=== PATIENT | female | born 1965 | race Caucasian/White ===

== ENCOUNTER → 2016-11-03 | Outpatient (CLI) | payer BC ==
[2016-11-03 11:59] LABS: ALT 52 U/L (9-52); AST 44 U/L (14-36); Alkaline Phosphatase 55 U/L (38-126); Anion Gap 11 mmol/L; Blood Urea Nitrogen 15 mg/dL (7-17); C Reactive Protein 9.4 mg/L (<10.0); Calcium 9.7 mg/dL (8.4-10.2); Carbon Dioxide 26 mmol/L (22-30); Chloride 103 mmol/L (98-107); Cholesterol 214 mg/dL (<200); Glucose 93 mg/dL (74-99); HDL Cholesterol 68 mg/dL (40-60); Non-African American GFR(MDRD) >60 (>60 ml/min/1.73 sqM); Potassium 4.7 mmol/L (3.5-5.1); Sodium 140 mmol/L (137-145); Total Bilirubin 0.6 mg/dL (0.2-1.3); Total Protein 6.8 g/dL (6.3-8.2); Triglycerides 131 mg/dL (<150)
== END | disposition home or self-care (01) ==
LOC: LABWHC1 10:12
PROVIDERS: ATTEND Nurse Practitioner Family
DX: M79.89 Other specified soft tissue disorders (principal); Z13.220 Encounter for screening for lipoid disorders; Z13.228 Encounter for screening for other metabolic disorders; Z13.1 Encounter for screening for diabetes mellitus
CPT/HCPCS: 36415; 80053; 80061; 83036; 83090; 86140

== ENCOUNTER → 2017-04-27 | Outpatient (CLI) | payer MEDICAID ==
--- NOTE | 2017-04-28 14:15 | MM ---
Reason for exam: screening (asymptomatic). Last mammogram was performed 2 years and 6 months ago. History: Patient is nulliparous. Benign MG stereo VAD BX LT of the left breast, March 29, 2014. Benign US breast needle core LT of the left breast, March 29, 2014. Taking hormonal contraceptives for 35 years beginning at age 11. Physical Findings: A clinical breast exam by your physician is recommended on an annual basis and results should be correlated with mammographic findings. MG 3D Screening Mammo W/Cad Bilateral CC and MLO view(s) were taken. Prior study comparison: October 23, 2014, left breast MG diagnostic mammo LT w CAD. January 30, 2014, bilateral MG work up mamm w CAD BILAT. The breast tissue is heterogeneously dense. This may lower the sensitivity of mammography. There are multiple bilateral stable masses. No suspicious abnormality. Post biopsy change on left breast. No significant changes when compared with prior studies. ASSESSMENT: Benign, BI-RAD 2 RECOMMENDATION: Routine screening mammogram of both breasts in 1 year.
== END | disposition home or self-care (01) ==
LOC: RADMAMWWP 13:05
PROVIDERS: ATTEND Obstetrics & Gynecology
DX: Z12.31 Encounter for screening mammogram for malignant neoplasm of breast (principal)
CPT/HCPCS: 77063; G0202

== ENCOUNTER → 2017-06-29 | Outpatient (CLI) | payer MEDICAID ==
[2017-06-30 00:51] LABS: Estradiol 99.6 pg/mL
== END | disposition home or self-care (01) ==
LOC: MMGSC 10:37
PROVIDERS: ATTEND Obstetrics & Gynecology
DX: N95.1 Menopausal and female climacteric states (principal); Z79.890 Hormone replacement therapy
CPT/HCPCS: 36415; 82670; 83001; 84403

== ENCOUNTER 2018-01-16 00:04 | Emergency (ER) | payer MEDICAID ==
[2018-01-16 00:07] VITALS: TEMP 97.5
[2018-01-16] MEDS ORDERED: METOCLOPRAMIDE 5 MG/ML 2 ML VIAL IVP STA ×2 (00:18→01:10)
[2018-01-16] MEDS ORDERED: SODIUM CHLORIDE 0.9% 1,000 ML IV STA (00:18)
[2018-01-16] MEDS ORDERED: KETOROLAC 30 MG/ML 1 ML VIAL IVP STA ×2 (00:18→01:10)
[2018-01-16] MEDS ORDERED: diphenhydrAMINE 50 MG/ML 1 ML VIAL IVP STA (00:18)
--- NOTE | 2018-01-16 00:29 | ED ---
Headache HPI - General Chief Complaint: Headache Stated Complaint: Migraine Time Seen by Provider: 01/16/18 00:14 Mode of arrival: ambulatory Limitations: no limitations - History of Present Illness Initial Comments: This is a 52-year-old female who presents to the emergency department with chief complaint of migraine. Patient does state that she has a history of migraines. She states that tonight, approximately one hour ago she developed a migraine. She describes it as sharp and throbbing, starting at the base of the skull and radiating to her forehead. She states that this is what her normal migraines feel like. She does state that she took 3 sumatriptan and has been vomiting and believes she vomited some of the medication up. She denies any fevers or chills, abdominal pain, diarrhea or constipation, chest pain or shortness of breath. She denies any recent falls, injuries or trauma. - Related Data Home Medications Medication Instructions Recorded Confirmed Aspirin 1 tab PO DAILY 08/09/15 08/09/15 Escitalopram [Lexapro] 1 tab PO DAILY 08/09/15 08/09/15 Levothyroxine Sodium [Synthroid] 1 tab PO DAILY 08/09/15 08/09/15 Omeprazole [PriLOSEC] 1 tab PO DAILY 08/09/15 08/09/15 Allergies Allergy/AdvReac Type Severity Reaction Status Date / Time ephedrine AdvReac Rapid Verified 01/16/18 00:07 Heart Rate lansoprazole [From Prevacid] AdvReac Nausea & Verified 01/16/18 00:07 Vomiting & Diarrhea Review of Systems ROS Statement: Those systems with pertinent positive or pertinent negative responses have been documented in the HPI. ROS Other: All systems not noted in ROS Statement are negative. Past Medical History Past Medical History: Asthma, Fibromyalgia, GERD/Reflux, Thyroid Disorder Additional Past Medical History / Comment(s): kidney stones, narcolepsy History of Any Multi-Drug Resistant Organisms: None Reported Past Surgical History: Cholecystectomy Past Psychological History: Depression Smoking Status: Never smoker Past Alcohol Use History: None Reported Past Drug Use History: None Reported General Exam - General Exam Comments Initial Comments: General: Awake and alert, well-developed; in no apparent distress. Diaphoretic. Appears to be in pain. HEENT: Head atraumatic, normocephalic. Pupils are equal, round and reactive to light. Extraocular movements intact. Oropharynx moist without erythema or exudate. Neck: Supple. Normal ROM. Cardiovascular: Regular rate and rhythm. No murmurs, rubs or gallops. Chest symmetrical. Respiratory: Lungs clear to auscultation bilaterally. No wheezes, rales or rhonchi. Normal respiratory effort with no use of accessory muscles. Musculoskeletal: Normal ROM, no tenderness bilateral upper and lower extremities. Ambulating normally. Skin: [place], warm and dry without rashes or lesions. Neurological: Alert and oriented x3. CN II-XII grossly intact. Speech is fluent and answers are appropriate. No focal neuro deficits. Psychiatric: Normal mood and affect. No overt signs of depression or anxiety noted. Limitations: no limitations Course Vital Signs 01/16/18 00:05 Temperature 97.5 F L Pulse Rate 61 Respiratory 18 Rate Blood Pressure 167/82 O2 Sat by Pulse 98 Oximetry Medical Decision Making - Medical Decision Making This is a 52-year-old female with history of migraines who presents to the emergency department chief complaint of migraine. Patient states her current migraine is the same as her previous migraines. She states that she was unable to get her symptoms under control at home. Patient given fluids and headache cocktail in the emergency department. Patient states that her symptoms have improved. She is ready to be discharged home. Vital signs are stable and she is in no acute distress. She will be discharged home at this time. All questions answered. Disposition Clinical Impression: Headache Disposition: HOME SELF-CARE Condition: Good Instructions: Acute Headache (ED) Additional Instructions: Please follow up with primary care provider within 1-2 days. Return to emergency department if symptoms should worsen or any concerns arise. Is patient prescribed a controlled substance at d/c from ED?: No Referrals: Tavares Gallegos III, MD [Primary Care Provider] - 1-2 days Time of Disposition: 02:09
[2018-01-16] MEDS ORDERED: ORPHENADRINE 30 MG/ML 2 ML VIAL IVP STA (01:30)
[2018-01-16] MEDS ORDERED: methylPREDNISolone SOD SUCCI 125 MG/2 ML VIAL IV STA (01:30)
[2018-01-16 02:19] VITALS: BP 131/78; PULSE 85; RESP 16
== END 2018-01-16 02:20 | disposition home or self-care (01) ==
LOC: EC 00:04
DX: R51 Headache (principal); R11.10 Vomiting, unspecified; F32.9 Major depressive disorder, single episode, unspecified; E07.9 Disorder of thyroid, unspecified; K21.9 Gastro-esophageal reflux disease without esophagitis; Z86.69 Personal history of other diseases of the nervous system and sense organs; Z90.49 Acquired absence of other specified parts of digestive tract; Z79.82 Long term (current) use of aspirin; Z79.899 Other long term (current) drug therapy; Z88.8 Allergy status to other drugs, medicaments and biological substances
CPT/HCPCS: 99283; 96374; 96375 ×4; 96376; 96361; J1200; J2360; J2765; J2930; J1885

== ENCOUNTER → 2018-02-04 | Outpatient (CLI) | payer MEDICAID ==
[2018-02-04 10:38] LABS: Basophils % (A) 1 %; Eosinophils # (A) 0.3 k/uL (0-0.7); Eosinophils % (A) 5 %; HCT 42.5 % (34.0-46.0); HGB 14.7 gm/dL (11.4-16.0); Lymphocytes # (A) 1.5 k/uL (1.0-4.8); Lymphocytes % (A) 31 %; MCH 32.7 pg (25.0-35.0); MCHC 34.6 g/dL (31.0-37.0); MCV 94.4 fL (80.0-100.0); Mean Platelet Volume 6.5; Monocytes # (A) 0.2 k/uL (0-1.0); Monocytes % (A) 5 %; Neutrophils # (A) 2.8 k/uL (1.3-7.7); Neutrophils % (A) 56 %; Platelet Count 276 k/uL (150-450); RDW 12.7 % (11.5-15.5)
[2018-02-04 10:54] LABS: Anion Gap 10 mmol/L; Blood Urea Nitrogen 23 mg/dL (7-17); C Reactive Protein 5.6 mg/L (<10.0); Calcium 9.9 mg/dL (8.4-10.2); Carbon Dioxide 26 mmol/L (22-30); Chloride 104 mmol/L (98-107); Cholesterol 211 mg/dL (<200); Glucose 95 mg/dL (74-99); HDL Cholesterol 60 mg/dL (40-60); LDL Cholesterol,Calculated 125 mg/dL (0-99); Potassium 4.7 mmol/L (3.5-5.1); Sodium 140 mmol/L (137-145); Triglycerides 132 mg/dL (<150)
[2018-02-04 11:08] LABS: T4, Free (Free Thyroxine) 0.87 ng/dL (0.78-2.19)
[2018-02-04 17:13] LABS: Iron Saturation 49.17 (12.00-45.00); Vitamin D 25 Hydroxy 48.2 ng/mL (30.0-100.0)
[2018-02-04 17:33] LABS: Folate, Serum 18.8 ng/mL
[2018-02-04 19:21] LABS: Hemoglobin A1C 5.1 % (4.0-6.0)
== END | disposition home or self-care (01) ==
LOC: LABWHC1 10:05
PROVIDERS: ATTEND Nurse Practitioner Family
DX: E03.9 Hypothyroidism, unspecified (principal); G47.419 Narcolepsy without cataplexy; R53.83 Other fatigue; L65.9 Nonscarring hair loss, unspecified; E66.9 Obesity, unspecified; R41.82 Altered mental status, unspecified; R51 Headache; N95.1 Menopausal and female climacteric states; Z13.228 Encounter for screening for other metabolic disorders; Z13.220 Encounter for screening for lipoid disorders
CPT/HCPCS: 36415; 80048; 80061; 82306; 82607; 82670; 82728; 82746; 83001; 83036; 83090; 83540; 83550; 84144; 84403; 84439; 84443; 84480; 85025; 86140

== ENCOUNTER → 2018-03-03 | Outpatient (CLI) | payer MEDICAID ==
--- NOTE | 2018-03-03 23:24 | MR ---
EXAMINATION TYPE: MR brain/cspine wo/w DATE OF EXAM: 03/03/2018 COMPARISON: Brain 10/25/2009. HISTORY: Migraines, changes in vision, neck spasms TECHNIQUE: Multiplanar, multisequence images of the brain and brainstem is performed without and with IV contras t, utilizing 8 mL intravenous Gadavist . FINDINGS: There is minimal cerebral cortical atrophy. There is no mass effect nor midline shift. There is no si gn of intracranial hemorrhage. Corpus callosum appears normal. The brainstem appears normal. Sella tu rcica is normal. Contrast images show no pathologic enhancement of the brain. The cervical vertebra have normal alignment. There is slight narrowing of disc spaces at C6-7 and C7- T1. There is developmentally adequate cervical spinal canal. There are small posterior disc herniatio ns at C5-6 C6-7 C7-T1. Cervical spinal cord has normal signal pattern. There is no edema. There is no spinal stenosis. There is no compression fracture. There is no pathologic enhancement in the cervica l spine. IMPRESSION: Mild cerebral atrophy. No acute intracranial abnormality. Mild spondylotic changes in the cervical spine and multilevel small posterior cervical disc herniatio n. No spinal stenosis.
== END | disposition home or self-care (01) ==
LOC: RADMRIMAIN 18:55
PROVIDERS: ATTEND Family Medicine
DX: G31.9 Degenerative disease of nervous system, unspecified (principal); M50.222 Other cervical disc displacement at C5-C6 level; M47.812 Spondylosis without myelopathy or radiculopathy, cervical region; G43.709 Chronic migraine without aura, not intractable, without status migrainosus; G95.20 Unspecified cord compression; G95.0 Syringomyelia and syringobulbia
CPT/HCPCS: 70553; 72156; A9581

== ENCOUNTER 2018-04-06 11:23 | Emergency (ER) | payer MEDICAID ==
[2018-04-06 11:35] VITALS: TEMP 98.8
[2018-04-06] MEDS ORDERED: IPRATROPIUM-ALBUTEROL 3 ML NEB INHALATION STA (11:54)
[2018-04-06] MEDS ORDERED: ACETAMINOPHEN TAB 500 MG TAB PO STA (11:55)
[2018-04-06] MEDS ORDERED: IBUPROFEN 600 MG TAB PO STA (11:55)
--- NOTE | 2018-04-06 11:56 | ED ---
URI HPI - General Chief Complaint: Upper Respiratory Infection Stated Complaint: COLD SYMPTOMS Time Seen by Provider: 04/06/18 11:40 Source: patient, RN notes reviewed, old records reviewed Mode of arrival: ambulatory Limitations: no limitations - History of Present Illness Initial Comments: This Patient is a 32-year-old female presents emergency department if she plan cough congestion sore throat for the past 2 days. Patient reports that she has seen in urgent care last . She was started on Decadron and Augmentin. Patient's been on this antibiotic for a week. Should she was feeling somewhat better up until yesterday. She was at a [facility] yesterday as well as been exposed to multiple allergens she may have breathed in. Patient's concerned because yesterday and today she's had a severe cough and is feeling worse. She complains of severe body aches. - Related Data Home Medications Medication Instructions Recorded Confirmed Aspirin 1 tab PO DAILY 08/09/15 04/06/18 Escitalopram [Lexapro] 1 tab PO DAILY 08/09/15 04/06/18 Levothyroxine Sodium [Synthroid] 1 tab PO DAILY 08/09/15 04/06/18 Omeprazole [PriLOSEC] 1 tab PO DAILY 08/09/15 04/06/18 Albuterol Inhaler [Ventolin Hfa 1 - 2 puff INHALATION RT-Q6H PRN 04/06/18 Inhaler] Fluticasone/Salmeterol [Advair 1 inhalation PO BID 04/06/18 04/06/18 250-50 Diskus] Previous Rx's Medication Instructions Recorded Azithromycin [Zithromax] 500 mg PO DAILY #5 tab 04/06/18 guaiFENesin-DM 600/30MG [Mucinex 1 each PO Q12HR #20 tab.er.12h 04/06/18 Dm] predniSONE 50 mg PO DAILY #5 tablet 04/06/18 Allergies Allergy/AdvReac Type Severity Reaction Status Date / Time ephedrine AdvReac Rapid Verified 04/06/18 11:31 Heart Rate lansoprazole [From Prevacid] AdvReac Nausea & Verified 04/06/18 11:31 Vomiting & Diarrhea Review of Systems ROS Statement: Those systems with pertinent positive or pertinent negative responses have been documented in the HPI. ROS Other: All systems not noted in ROS Statement are negative. Past Medical History Past Medical History: Asthma, Fibromyalgia, GERD/Reflux, Thyroid Disorder Additional Past Medical History / Comment(s): kidney stones, narcolepsy History of Any Multi-Drug Resistant Organisms: None Reported Past Surgical History: Cholecystectomy Past Psychological History: Depression Smoking Status: Never smoker Past Alcohol Use History: None Reported Past Drug Use History: None Reported General Exam - General Exam Comments Initial Comments: This is a 52-year-old female. Alert and oriented. No significant distress. Limitations: no limitations Head exam: Present: atraumatic, normocephalic, normal inspection Eye exam: Present: normal appearance, PERRL, EOMI. Absent: scleral icterus, conjunctival injection, periorbital swelling ENT exam: Present: normal exam, mucous membranes moist Neck exam: Present: normal inspection. Absent: tenderness, meningismus, lymphadenopathy Respiratory exam: Present: normal lung sounds bilaterally. Absent: respiratory distress, wheezes, rales, rhonchi, stridor Cardiovascular Exam: Present: regular rate, normal rhythm, normal heart sounds. Absent: systolic murmur, diastolic murmur, rubs, gallop, clicks GI/Abdominal exam: Present: soft, normal bowel sounds. Absent: distended, tenderness, guarding, rebound, rigid Extremities exam: Present: normal inspection, full ROM, normal capillary refill. Absent: tenderness, pedal edema, joint swelling, calf tenderness Back exam: Present: normal inspection Neurological exam: Present: alert, oriented X3, CN II-XII intact Psychiatric exam: Present: normal affect, normal mood Skin exam: Present: warm, dry, intact, normal color. Absent: rash Course Vital Signs 04/06/18 04/06/18 04/06/18 11:32 12:15 12:36 Temperature 98.8 F 98.8 F Pulse Rate 113 H 108 H Respiratory 20 Rate Blood Pressure 127/80 O2 Sat by Pulse 97 Oximetry 04/06/18 12:45 Temperature Pulse Rate 112 H Respiratory Rate Blood Pressure O2 Sat by Pulse Oximetry Medical Decision Making - Medical Decision Making Patient is a 52-year-old female treated recently for sinus infection bronchitis was feeling better up until yesterday. She now developed a significant cough. She started on Augmentin at this time as well as finishing a steroid taper pack. At this time lungs are clear to auscultation she does have a mild cough. Patient was given a DuoNeb treatment. She Motrin Tylenol. She completed the body aches PG concern for influenza. This time rapid influenza is negative. This is multiple viral etiologies are could possibly be ALLERGY exposure. She does report that she's been cleaning dust and mold. At this time Patient will be discharged with inhaler, continue her Augmentin. Chest x-ray was negative for any acute process. We'll follow up with primary care provider. All questions answered return parameters were discussed. - Lab Data Lab Results 04/06/18 Range/Units 12:20 Influenza Type A RNA Not Detected (Not Detectd) Influenza Type B (PCR) Not Detected (Not Detectd) - Radiology Data Radiology results: report reviewed Normal chest x-ray Disposition Clinical Impression: Bronchitis Disposition: HOME SELF-CARE Condition: Good Instructions: Upper Respiratory Infection (ED) Additional Instructions: Patient has follow-up with primary care physician in her throat specialist. Continue to use decongestant medication. Start the antibiotic. Finish the prescription dorsum steroid. Return to the emergency department if any alarming signs or symptoms occur. Prescriptions: Azithromycin [Zithromax] 500 mg PO DAILY #5 tab guaiFENesin-DM 600/30MG [Mucinex Dm] 1 each PO Q12HR #20 tab.er.12h predniSONE 50 mg PO DAILY #5 tablet Is patient prescribed a controlled substance at d/c from ED?: No Referrals: Tavares Gallegos III, MD [Primary Care Provider] - 1-2 days Christopher Frey DO [Doctor of Osteopathic Medicine] - 1-2 days Time of Disposition: 13:23
--- NOTE | 2018-04-06 12:53 | XR ---
EXAMINATION TYPE: XR chest 2V DATE OF EXAM: 04/06/2018 COMPARISON: NONE HISTORY: Shortness of breath TECHNIQUE: Frontal and lateral views of the chest are obtained. FINDINGS: Scattered senescent parenchymal changes noted. Hyperinflation compatible with COPD. No evidence for infiltrate. No evidence for atelectasis. Heart size is stable. Mediastinal structures are stable and grossly unremarkable. No evidence for hilar prominence. Degenerative changes dorsal spine. IMPRESSION: 1. No evidence for acute pulmonary disease.
[2018-04-06 13:38] VITALS: BP 120/80; PULSE 72; RESP 18
== END 2018-04-06 13:38 | disposition home or self-care (01) ==
LOC: EC 11:23
DX: J45.909 Unspecified asthma, uncomplicated (principal); K21.9 Gastro-esophageal reflux disease without esophagitis; E07.9 Disorder of thyroid, unspecified; F32.9 Major depressive disorder, single episode, unspecified; Z79.82 Long term (current) use of aspirin; Z79.51 Long term (current) use of inhaled steroids; Z79.899 Other long term (current) drug therapy; Z88.8 Allergy status to other drugs, medicaments and biological substances; Z53.29 Procedure and treatment not carried out because of patient's decision for other reasons
CPT/HCPCS: 71046; 87502; 94640; 99284

== ENCOUNTER → 2018-04-19 | Outpatient (CLI) | payer MEDICAID ==
--- NOTE | 2018-04-19 14:58 | US ---
EXAMINATION TYPE: US transvaginal DATE OF EXAM: 04/19/2018 COMPARISON: NONE CLINICAL HISTORY: 52-year-old female N93.9 UTERINE HEMORRHAGE. TECHNIQUE: Patient not adequately prepped for transabdominal exam - patient preferred TV approach ra ther than wait and fill bladder Date of LMP: 2 weeks ago FINDINGS: EXAM MEASUREMENTS: Uterus: 6.7 x 3.3 x 3.9 cm Endometrial Stripe: 0.3 cm Right Ovary: unable to visualize Left Ovary: unable to visualize 1. Uterus: Anteverted. Heterogeneous in appearance. Small nabothian cysts noted 2. Endometrium: appears wnl 3. Right Ovary: Obscured by overlying bowel gas 4. Left Ovary: Obscured by overlying bowel gas 5. Bilateral Adnexa: appears wnl 6. Posterior cul-de-sac: wnl IMPRESSION: Thin endometrial stripe at 3 mm. Heterogeneous myometrium could reflect diffuse small fibroid change or adenomyosis. Neither ovary could be visualized. No pelvic free fluid.
== END | disposition home or self-care (01) ==
LOC: RADUSWWP 12:37
PROVIDERS: ATTEND Obstetrics & Gynecology
DX: N93.9 Abnormal uterine and vaginal bleeding, unspecified (principal); R93.8 Abnormal findings on diagnostic imaging of other specified body structures
CPT/HCPCS: 76830

== ENCOUNTER → 2018-05-19 | Outpatient (CLI) | payer MEDICAID ==
--- NOTE | 2018-05-23 09:39 | MM ---
Reason for exam: screening (asymptomatic). Last mammogram was performed 1 year and 1 month ago. History: Patient is nulliparous. Benign MG stereo VAD BX LT of the left breast, March 29, 2014. Benign US breast needle core LT of the left breast, March 29, 2014. Took hormonal contraceptives for 35 years beginning at age 11. Physical Findings: A clinical breast exam by your physician is recommended on an annual basis and results should be correlated with mammographic findings. MG 3D Screening Mammo W/Cad Bilateral CC and MLO view(s) were taken. Prior study comparison: April 27, 2017, bilateral MG 3d screening mammo w/cad. October 23, 2014, left breast MG diagnostic mammo LT w CAD. The breast tissue is heterogeneously dense. This may lower the sensitivity of mammography. Previous mammotome biopsy in the left breast x 2. There is chronic nodularity in the left breast posteriorly and medially only minimally larger from 2017. No significant changes when compared with prior studies. ASSESSMENT: Negative, BI-RAD 1 RECOMMENDATION: Routine screening mammogram of both breasts in 1 year.
== END | disposition home or self-care (01) ==
LOC: RADMAMWWP 09:57
PROVIDERS: ATTEND Obstetrics & Gynecology
DX: Z12.31 Encounter for screening mammogram for malignant neoplasm of breast (principal)
CPT/HCPCS: 77063; 77067

== ENCOUNTER 2018-07-03 00:04 | Emergency (ER) | payer MEDICAID ==
[2018-07-03 00:16] VITALS: RESP 18; TEMP 97.4
[2018-07-03] MEDS ORDERED: FAMOTIDINE 20 MG/2 ML VIAL IV STA ×2 (00:26→00:44)
[2018-07-03] MEDS ORDERED: methylPREDNISolone SOD SUCCI 125 MG/2 ML VIAL IV STA (00:26)
[2018-07-03] MEDS ORDERED: SODIUM CHLORIDE 0.9% 500 ML 500 ML IV STA (00:26)
[2018-07-03] MEDS ORDERED: diphenhydrAMINE 50 MG/ML 1 ML VIAL IVP STA (00:26)
[2018-07-03] MEDS ORDERED: EPINEPHrine 1 MG/ML 1 ML AMP IM STA (00:26)
--- NOTE | 2018-07-03 01:02 | ED ---
General Adult HPI - General Chief complaint: Allergic Reaction Stated complaint: Allergic Reaction Source: patient, family, RN notes reviewed Mode of arrival: ambulatory Limitations: no limitations - History of Present Illness Initial comments: Chief complaint history of present illness this is a 52-year-old female brought emergency room by her . The patient reports 7 ALLERGIC reaction after eating some natural bagel chips. Denies having had reactions to food in the past. He does have a history though of asthma. At home the patient took a drink approximately 25 mg of Benadryl, took a dose of Singulair, Zyrtec. Upon arrival to emergency room the patient had an IV started. She was giving epinephrine 0.2 IM, Benadryl 25 IV push, Pepcid 20 mg IV push, Solu-Medrol Medrol 125 IV push. Patient was placed on oxygen. Patient has itchy rash but no stridor. Mild swelling to eyelids and hands. No swelling to her tongue. No change in her voice - Related Data Home Medications Medication Instructions Recorded Confirmed Aspirin 1 tab PO DAILY 08/09/15 04/06/18 Escitalopram [Lexapro] 1 tab PO DAILY 08/09/15 04/06/18 Levothyroxine Sodium [Synthroid] 1 tab PO DAILY 08/09/15 04/06/18 Omeprazole [PriLOSEC] 1 tab PO DAILY 08/09/15 04/06/18 Albuterol Inhaler [Ventolin Hfa 1 - 2 puff INHALATION RT-Q6H PRN 04/06/18 Inhaler] Fluticasone/Salmeterol [Advair 1 inhalation PO BID 04/06/18 04/06/18 250-50 Diskus] Previous Rx's Medication Instructions Recorded Azithromycin [Zithromax] 500 mg PO DAILY #5 tab 04/06/18 guaiFENesin-DM 600/30MG [Mucinex 1 each PO Q12HR #20 tab.er.12h 04/06/18 Dm] predniSONE 50 mg PO DAILY #5 tablet 04/06/18 EPINEPHrine [Epipen 2-Jeremy] 0.3 mg .ROUTE ONCE PRN #1 07/03/18 auto.injct predniSONE 20 mg PO DAILY #3 tab 07/03/18 Allergies Allergy/AdvReac Type Severity Reaction Status Date / Time ephedrine AdvReac Rapid Verified 07/03/18 00:16 Heart Rate lansoprazole [From Prevacid] AdvReac Nausea & Verified 07/03/18 00:16 Vomiting & Diarrhea Review of Systems ROS Statement: Those systems with pertinent positive or pertinent negative responses have been documented in the HPI. Review of systems. Patient , ALLERGIC reaction to a food that she had tried at home this occurred just shortly after eating some thin dry crust be bagel chips. Patient took Singulair. History of asthma. Past medical problems asthma, fibromyalgia, GERD, thyroid disorder, kidney stones. Surgery, cholecystectomy. Nonsmoker and nonalcohol user. Family history noncontributory. Patient has ALLERGIES to ephedrine and lansoprazole the ephedrine is makes her feel jittery. Patient states Pepcid makes her a headache. Unfortunately Zantac is not available in our formulary. Patient agrees to take Pepcid to help control her ALLERGIC reaction. After approximately 30 minutes the patient's rash subsided. She did feel jittery because of the epinephrine. No difficulty breathing. No wheezing. Patient be observed for at least 90 more minutes. At which time patient be reevaluated and if able be discharged home on medications. Patient final disposition endorsed to Dr. Cannon Patient was advised to continue with Benadryl 25-50 mg every 6-8 hours for the next 2 days. Also [id number] Zantac one tablet daily for 2 days. The patient was given a prescription for an epi-pen to be used as directed and as needed. The patient will also be given prescription for prednisone 20 mg are taken one daily for 2 days. ROS Other: All systems not noted in ROS Statement are negative. Past Medical History Past Medical History: Asthma, Fibromyalgia, GERD/Reflux, Thyroid Disorder Additional Past Medical History / Comment(s): kidney stones, narcolepsy History of Any Multi-Drug Resistant Organisms: None Reported Past Surgical History: Cholecystectomy Past Psychological History: Depression Smoking Status: Never smoker Past Alcohol Use History: None Reported Past Drug Use History: None Reported General Exam - General Exam Comments Initial Comments: General: The patient is awake and alert, patient is having ALLERGIC reaction to some bagel thins which she just ate. She took Benadryl at home. See nurses vital signs. No significant respiratory distress this time. Eye: Pupils are equal, round and reactive to light, extra-ocular movements are intact ; there is normal conjunctiva bilaterally. No signs of icterus. Mild eyelid swelling. Ears, nose, mouth and throat: There are moist mucous membranes and no oral lesions. Tongue is not swollen. Neck: The neck is supple, no stridor Cardiovascular: No murmur appreciated Respiratory: Lungs are clear to auscultation, respirations are non-labored, breath sounds are equal. No wheezes, stridor, rales, or rhonchi. Gastrointestinal: S a complaint of nausea vomiting. No neuro deficits. Skin: Reddened skin no hives. Psychiatric: Cooperative, Limitations: no limitations Course Vital Signs 07/03/18 07/03/18 07/03/18 00:10 00:20 00:47 Temperature 97.4 F L Pulse Rate 78 89 94 Respiratory 18 18 18 Rate Blood Pressure 67/35 105/32 111/72 O2 Sat by Pulse 91 L 90 L 97 Oximetry 07/03/18 02:49 Temperature Pulse Rate 105 H Respiratory 18 Rate Blood Pressure 115/75 O2 Sat by Pulse 98 Oximetry Medical Decision Making - Medical Decision Making Medical decision making; is a patient 52 years old brought emergency room by her . The patient had an ALLERGIC reaction to food she just 8. The patient received standard antiallergic medications as listed Patient was observed for a prolonged period of time rash ended. No difficulty breathing. The patient's final disposition was to be determined by Dr. Ingram. And discharged home on EpiPen prescription be filled immediately, and a drill, Zantac, Benadryl as directed. Told return emergency room as needed if there are any problems. Disposition Clinical Impression: Allergic reaction Disposition: HOME SELF-CARE Condition: Fair Instructions: Anaphylaxis (ED) Prescriptions: EPINEPHrine [Epipen 2-Jeremy] 0.3 mg .ROUTE ONCE PRN #1 auto.injct PRN Reason: Allergic Reaction predniSONE 20 mg PO DAILY #3 tab Is patient prescribed a controlled substance at d/c from ED?: No Referrals: Tavares Gallegos III, MD [Primary Care Provider] - 1-2 days Time of Disposition: 15:43
[2018-07-03 02:49] VITALS: BP 115/75; PULSE 105
== END 2018-07-03 02:49 | disposition home or self-care (01) ==
LOC: EC 00:04
DX: T78.1XXA Other adverse food reactions, not elsewhere classified, initial encounter (principal); R21 Rash and other nonspecific skin eruption; J45.909 Unspecified asthma, uncomplicated; F32.9 Major depressive disorder, single episode, unspecified; K21.9 Gastro-esophageal reflux disease without esophagitis; Z79.82 Long term (current) use of aspirin; Z79.51 Long term (current) use of inhaled steroids; Z79.899 Other long term (current) drug therapy; Z88.8 Allergy status to other drugs, medicaments and biological substances
CPT/HCPCS: 99283; 96374; 96375 ×2; 96361; 96372; J0171; J1200; J2930

== ENCOUNTER → 2018-09-22 | Outpatient (CLI) | payer MEDICAID ==
[2018-09-22 11:13] LABS: Basophils % (A) 1 %; Eosinophils # (A) 0.6 k/uL (0-0.7); Eosinophils % (A) 7 %; HCT 42.8 % (34.0-46.0); HGB 14.3 gm/dL (11.4-16.0); Lymphocytes # (A) 1.6 k/uL (1.0-4.8); Lymphocytes % (A) 22 %; MCH 32.2 pg (25.0-35.0); MCHC 33.5 g/dL (31.0-37.0); MCV 96.1 fL (80.0-100.0); Mean Platelet Volume 6.1; Monocytes # (A) 0.4 k/uL (0-1.0); Monocytes % (A) 5 %; Neutrophils # (A) 4.9 k/uL (1.3-7.7); Neutrophils % (A) 64 %; Platelet Count 233 k/uL (150-450); RBC 4.45 m/uL (3.80-5.40); RDW 12.7 % (11.5-15.5); WBC 7.5 k/uL (3.8-10.6)
[2018-09-22 12:31] LABS: Erythrocyte Sedimentation Rate 6 mm/hr (0-20)
[2018-09-22 18:25] LABS: Albumin 4.4 g/dL (3.80-4.90); Albumin/Globulin Ratio 2.44 (1.60-3.17); Anion Gap 8.9 mmol/L (4.00-12.00); C Reactive Protein 0.7 mg/dL (0.0-0.8); Calcium 9.7 mg/dL (8.7-10.3); Carbon Dioxide 27.1 mmol/L (21.6-31.8); Globulin 1.8 g/dL (1.6-3.3); Potassium 4.6 mmol/L (3.5-5.5); Total Bilirubin 0.4 mg/dL (0.2-1.2); Total Protein 6.2 g/dL (6.2-8.2)
[2018-09-23 04:23] LABS: Hepatitis C IgG Antibody Non-Reactive (Non-Reactive)
[2018-09-23 10:49] LABS: Immunoglobulin A 79.2 mg/dL (60.0-350.0); Immunoglobulin M 71.8 mg/dL (40.0-280.0)
[2018-09-25 12:18] LABS: T4/T8 Ratio (CD4:CD8) 1.9 (1.0-3.7)
[2018-09-26 15:10] LABS: Lyme IgG/IgM 0.6 Index
[2018-09-27 06:17] LABS: Mycoplasma IgM Antibody 0.34 INDEX (<=0.90)
== END | disposition home or self-care (01) ==
LOC: LABWHC1 10:10
PROVIDERS: ATTEND Internal Medicine Infectious Disease
DX: R53.83 Other fatigue (principal); G72.49 Other inflammatory and immune myopathies, not elsewhere classified
CPT/HCPCS: 36415; 80053; 82784; 85025; 85652; 86140; 86360; 86618; 86738; 86803

== ENCOUNTER → 2018-11-17 | Outpatient (CLI) | payer MEDICAID ==
[2018-11-17 18:36] LABS: T4, Free (Free Thyroxine) 1.4 ng/dL (0.80-1.80)
[2018-11-17 18:53] LABS: Progesterone <0.2 ng/mL
== END | disposition home or self-care (01) ==
LOC: LABWHC1 11-10 10:11
PROVIDERS: ATTEND Obstetrics & Gynecology
DX: E03.9 Hypothyroidism, unspecified (principal); N95.1 Menopausal and female climacteric states
CPT/HCPCS: 36415; 82670; 83001; 84144; 84403; 84439; 84443

== ENCOUNTER → 2019-01-03 | Outpatient (CLI) | payer MEDICAID | END | disposition home or self-care (01) | LOC: LABWHC1 16:05 | PROVIDERS: ATTEND Obstetrics & Gynecology | DX: N95.1 Menopausal and female climacteric states (principal); R61 Generalized hyperhidrosis; E34.50 Androgen insensitivity syndrome, unspecified | CPT/HCPCS: 36415; 82670; 83001; 84144; 84403 ==

== ENCOUNTER → 2019-03-07 | Outpatient (CLI) | payer MEDICAID ==
--- NOTE | 2019-03-07 14:52 | XR ---
Right hip HISTORY: Trauma and pain 2 views of the right hip Bone mineralization, joint spaces and alignment are maintained. IMPRESSION: No fracture or dislocation.
--- NOTE | 2019-03-07 14:52 | XR ---
Right shoulder HISTORY: Trauma and pain 3 views of the right shoulder Bone mineralization, joint spaces and alignment are maintained. Right lung apex as visualized is norm al IMPRESSION: No fracture or dislocation. Shoulder MRI may be of benefit.
== END | disposition home or self-care (01) ==
LOC: RADXRMAIN 13:54
PROVIDERS: ATTEND Nurse Practitioner Family
DX: M25.551 Pain in right hip (principal); M25.511 Pain in right shoulder
CPT/HCPCS: 73501

== ENCOUNTER → 2019-12-26 | Outpatient (CLI) | payer MEDICAID ==
--- NOTE | 2019-12-26 13:07 | XR ---
EXAMINATION TYPE: XR chest 2V DATE OF EXAM: 12/26/2019 COMPARISON: Chest x-ray April 06, 2018 HISTORY: Cough for several weeks. TECHNIQUE: Frontal and lateral views of the chest are obtained. FINDINGS: There is some chronic parenchymal change without suspicious new focal air space opacity, p leural effusion, or pneumothorax seen. The cardiac silhouette size remains within normal limits. Cho lecystectomy clips noted on lateral view. Some [id number] multilevel spurring in the mid to low er thoracic spine is redemonstrated. IMPRESSION: Chronic changes without new suspicious acute pulmonary process. No significant change fr om prior.
[2019-12-26 13:19] LABS: Basophils # (A) 0.1 k/uL (0-0.2); Basophils % (A) 1 %; Eosinophils # (A) 0.4 k/uL (0-0.7); Eosinophils % (A) 7 %; HCT 45.5 % (34.0-46.0); HGB 14.9 gm/dL (11.4-16.0); Lymphocytes # (A) 1.3 k/uL (1.0-4.8); Lymphocytes % (A) 21 %; MCH 32.3 pg (25.0-35.0); MCHC 32.7 g/dL (31.0-37.0); MCV 98.8 fL (80.0-100.0); Mean Platelet Volume 6.8; Monocytes # (A) 0.3 k/uL (0-1.0); Monocytes % (A) 5 %; Neutrophils % (A) 65 %; Platelet Count 238 k/uL (150-450); RDW 12.2 % (11.5-15.5); WBC 6.3 k/uL (3.8-10.6)
[2019-12-26 15:36] LABS: Erythrocyte Sedimentation Rate 7 mm/hr (0-20)
[2019-12-27 00:03] LABS: ALT 35 U/L (8-44); AST 35 U/L (13-35); African American GFR (CKD) 112.3 (60.0-200.0); Alkaline Phosphatase 72 U/L (41-126); BUN/Creat Ratio 15.71 Ratio (12.00-20.00); C Reactive Protein <0.4 mg/dL (0.0-0.8); Calcium 9.7 mg/dL (8.7-10.3); Carbon Dioxide 25.2 mmol/L (21.6-31.8); Chloride 103 mmol/L (96-109); Glucose 94 mg/dL (70-110); Non-African American GFR(CKD) 96.9 (60.0-200.0); Potassium 4.2 mmol/L (3.5-5.5); Sodium 141 mmol/L (135-145); Total Bilirubin 0.8 mg/dL (0.3-1.2); Total Protein 6.4 g/dL (6.2-8.2)
== END | disposition home or self-care (01) ==
LOC: LABWHC1 11:46
PROVIDERS: ATTEND Family Medicine
DX: R05 Cough (principal); J32.8 Other chronic sinusitis; E03.9 Hypothyroidism, unspecified
CPT/HCPCS: 36415; 71046; 80053; 84439; 84443; 85025; 85652; 86140; 86480; 87070; 87205; 87635

== ENCOUNTER 2020-02-27 10:42 | Day surgery (SDC) | payer MEDICAID ==
[2020-02-25 13:08] VITALS: BMI 36.1
[2020-02-27 11:11] VITALS: TEMP 97.3
[2020-02-27] MEDS: LACTATED RINGERS 1,000 ML IV SCH ×2 (11:19→12:07)
[2020-02-27] MEDS ORDERED: LIDOCAINE 1% (10MG/ML) FOR IV START INTRADERMA ONE (11:20)
[2020-02-27] MEDS ORDERED: PROPOFOL 10 MG/ML 20 ML VIAL IV ONE (12:08)
[2020-02-27] MEDS ORDERED: LIDOCAINE 1% INJ 10MG/ML (20 ML MDV) ONE (12:08)
[2020-02-27] MEDS ORDERED: fentaNYL (PF) 50 MCG/ML 2 ML AMP ONE (12:08)
--- NOTE | 2020-02-27 12:31 | P.PCN ---
Date of Procedure: 02/27/20 Procedure(s) Performed: Brief history: Patient is a pleasant 54-year-old white female scheduled for an elective upper endoscopy as well as colonoscopy as a part of evaluation of. GERD and change in bowel habits. She takes omeprazole 20 mg daily. Has alternating diarrhea and constipation and sense of incomplete evacuation. Last colonoscopy was 4 years ago. Procedure performed: Esophagogastroduodenoscopy with biopsy Colonoscopy Preoperative diagnosis: GERD Change in bowel habits Anesthesia: MAC Procedure: After informed consent was obtained from the patient was brought into the endoscopy unit and IV sedation was administered by anesthesia under continuous monitoring. Initially upper endoscopy was done. The Olympus GF 160 video endoscope was inserted inserted into the mouth and esophagus intubated without any difficulty and was gradually advanced into the stomach and duodenum and carefully examined. The bulb and second part of the duodenum appeared normal. The scope was then withdrawn into the stomach adequately insufflated with air and upon careful examination the antrum had mild gastritis and biopsies were done from this area. The body had multiple small gastric polyps. Rest of the body, cardia and fundus appeared normal. The scope was then withdrawn into the esophagus. The GE junction was located at 40 cm to the incisors. It appeared regular with no erythema erosions or ulcerations. Rest of the esophagus appeared normal. Patient tolerated the procedure well. At this time the patient continued to remain sedation. Initial digital rectal examination was normal. Olympus CF 160 video colonoscope was then inserted into the rectum and gradually advanced to the cecum without any difficulty. Careful examination was performed as the scope was gradually being withdrawn. The prep was excellent. The cecum, ascending colon, transverse colon, descending colon, sigmoid colon and rectum appeared normal. Scattered sigmoidal diverticulosis seen. Retroflexion was performed in the rectum and no lesions were noted. Patient tolerated the procedure well. Impression: 1. Upper endoscopy revealed mild antral gastritis and multiple small gastric polyps 2. Colonoscopy revealed scattered sigmoid diverticula but no evidence of colorectal neoplasia Recommendations: Findings of this examination were discussed with the patient as well as her family. She was advised to follow with the biopsy results.. She will continue with her current medications and follow antireflux measures. She can have a repeat screening colonoscopy in 10 years.
[2020-02-27 13:00] VITALS: BP 108/64; PULSE 98; RESP 20
== END 2020-02-27 13:01 | disposition home or self-care (01) ==
LOC: ORWHC2ENDO 10:42
PROVIDERS: ATTEND Internal Medicine Gastroenterology
DX: K57.30 Diverticulosis of large intestine without perforation or abscess without bleeding (principal); K31.7 Polyp of stomach and duodenum; R19.4 Change in bowel habit; J45.909 Unspecified asthma, uncomplicated; G47.419 Narcolepsy without cataplexy; E07.9 Disorder of thyroid, unspecified; F32.9 Major depressive disorder, single episode, unspecified; K21.9 Gastro-esophageal reflux disease without esophagitis; Z90.49 Acquired absence of other specified parts of digestive tract; Z98.890 Other specified postprocedural states; Z79.899 Other long term (current) drug therapy; Z79.890 Hormone replacement therapy; Z88.8 Allergy status to other drugs, medicaments and biological substances; Z91.09 Other allergy status, other than to drugs and biological substances
CPT/HCPCS: 88305; 45378; 43239; J2001; J3010; J2704

== ENCOUNTER → 2020-06-13 | Outpatient (CLI) | payer MEDICAID ==
--- NOTE | 2020-06-16 09:38 | MM ---
Reason for exam: additional evaluation requested from prior study. Last mammogram was performed 2 years and 1 month ago. History: Patient is postmenopausal and is nulliparous. Benign MG stereo VAD BX LT of the left breast, March 29, 2014. Benign US breast needle core LT of the left breast, March 29, 2014. Took hormonal contraceptives for 40 years beginning at age 11. Physical Findings: Nurse did not find any significant physical abnormalities on exam. MG 3D Diag Mammo W/Cad [facility] Bilateral CC and MLO view(s) were taken. Prior study comparison: May 19, 2018, bilateral MG 3d screening mammo w/cad. April 27, 2017, bilateral MG 3d screening mammo w/cad. The breast tissue is heterogeneously dense. This may lower the sensitivity of mammography. Previous mammotome biopsy in the left breast. No significant new findings when compared with previous films. These results were verbally communicated with the patient and result sheet given to the patient on 06/13/20. ASSESSMENT: Benign, BI-RAD 2 RECOMMENDATION: Routine screening mammogram of both breasts in 1 year. Manage patient on a clinical basis.
--- NOTE | 2020-06-16 09:40 | USB ---
Reason for exam: additional evaluation requested from prior study. History: Patient is postmenopausal and is nulliparous. Benign MG stereo VAD BX LT of the left breast, March 29, 2014. Benign US breast needle core LT of the left breast, March 29, 2014. Took hormonal contraceptives for 40 years beginning at age 11. US Breast Limited RT Technologist: Hortencia Pisano Right limited breast ultrasound including focal area of concern, retroareolar and axilla demonstrates a 0.6 x 0.4 x 0.3cm cystic lesion at 10 o'clock, a 0.4 x 0.5 x 0.2cm cystic lesion at 11 o'clock and a 0.3 x 0.4 x 0.2cm cystic lesion at 11 o'clock. These results were verbally communicated with the patient and result sheet given to the patient on 06/13/20. ASSESSMENT: Benign, BI-RAD 2 RECOMMENDATION: Routine screening mammogram of both breasts in 1 year. Manage patient on a clinical basis.
== END | disposition home or self-care (01) ==
LOC: RADMAMWWP 14:18
PROVIDERS: ATTEND Obstetrics & Gynecology
DX: N63.10 Unspecified lump in the right breast, unspecified quadrant (principal); N63.20 Unspecified lump in the left breast, unspecified quadrant
CPT/HCPCS: 77062; 77066

== ENCOUNTER → 2020-07-18 | Outpatient (CLI) | payer MEDICAID | END | disposition home or self-care (01) | LOC: LABWHC1 09:11 | PROVIDERS: ATTEND Family Medicine | DX: Z20.828 Contact with and (suspected) exposure to other viral communicable diseases (principal); Z11.59 Encounter for screening for other viral diseases | CPT/HCPCS: 36415 ==

== ENCOUNTER → 2021-01-14 | Outpatient (CLI) | payer MEDICAID ==
[2021-01-14 14:17] LABS: Basophils # (A) 0.05 X 10*3/uL (0.00-0.10); Basophils % (A) 0.8 %; Eosinophils # (A) 0.19 X 10*3/uL (0.04-0.35); Eosinophils % (A) 3.2 %; HCT 44.8 % (37.2-46.3); Lymphocytes # (A) 1.64 X 10*3/uL (0.90-5.00); Lymphocytes % (A) 27.8 %; MCH 32.8 pg (27.0-32.0); MCHC 33.5 g/dL (32.0-37.0); MCV 97.8 fL (80.0-97.0); Mean Platelet Volume 9.2 fL (9.5-12.2); Monocytes # (A) 0.54 X 10*3/uL (0.20-1.00); Monocytes % (A) 9.2 %; Neutrophils # (A) 3.45 X 10*3/uL (1.80-7.70); Neutrophils % (A) 58.7 %; Platelet Count 253 X 10*3/uL (140-440); RBC 4.58 X 10*6/uL (4.10-5.20); WBC 5.89 X 10*3/uL (4.50-10.00)
[2021-01-14 15:22] LABS: ALT 29 U/L (8-44); AST 28 U/L (13-35); African American GFR (CKD) 111.5 (60.0-200.0); Albumin/Globulin Ratio 2.19 (1.60-3.17); Alkaline Phosphatase 76 U/L (41-126); C Reactive Protein <0.4 mg/dL (0.0-0.8); Calcium 9.6 mg/dL (8.7-10.3); Carbon Dioxide 26.3 mmol/L (21.6-31.8); Chloride 107 mmol/L (96-109); Chol/HDL Ratio 5.57; Cholesterol 262 mg/dL (0-200); Globulin 2.1 g/dL (1.6-3.3); Glucose 153 mg/dL (70-110); LDL Cholesterol,Calculated 148.2 mg/dL (0.0-131.0); Non-African American GFR(CKD) 96.2 (60.0-200.0); Potassium 4.3 mmol/L (3.5-5.5); Sodium 142 mmol/L (135-145); Total Bilirubin 0.5 mg/dL (0.3-1.2); Total Protein 6.7 g/dL (6.2-8.2)
== END | disposition home or self-care (01) ==
LOC: LABWHC1 07:26
PROVIDERS: ATTEND Nurse Practitioner Family
DX: Z00.00 Encounter for general adult medical examination without abnormal findings (principal)
CPT/HCPCS: 36415; 80053; 80061; 82306; 83036; 84439; 84443; 85025; 86038; 86140

== ENCOUNTER → 2021-04-09 | Outpatient (CLI) | payer MEDICAID ==
[2021-04-09 13:00] LABS: Appearance,Urine Clear (Clear); Bacteria,Urine Rare /hpf; Bilirubin,Urine Negative (Negative); Blood,Urine Negative (Negative); Color,Urine Yellow; Glucose,Urine (UA) Negative (Negative); Ketones,Urine Negative (Negative); Leukocyte Esterase,Urine Moderate (Negative); Mucus,Urine Rare /hpf; Nitrite,Urine Negative (Negative); PH, Urine 5.5 (5.0-8.0); Protein,Urine Negative (Negative); RBC,Urine 1 /hpf (0-5); Squamous Epithelial Cell,Urine 3 /hpf (0-4); Urobilinogen,Urine <2.0 mg/dL (<2.0); WBC,Urine 12 /hpf (0-5)
[2021-04-10 01:17] LABS: Estradiol 50.2 pg/mL; Follicle Stimulating Hormone 51.3 mIU/mL
== END | disposition home or self-care (01) ==
LOC: LABWHC1 10:00
PROVIDERS: ATTEND Obstetrics & Gynecology
DX: N95.1 Menopausal and female climacteric states (principal); E03.9 Hypothyroidism, unspecified; R53.82 Chronic fatigue, unspecified; R31.9 Hematuria, unspecified; Z79.890 Hormone replacement therapy
CPT/HCPCS: 36415; 81001; 82607; 82670; 82672; 83001; 84144; 84439; 84443; 84478; 84481

== ENCOUNTER 2021-04-22 07:49 | Emergency (ER) | payer MEDICAID ==
[2021-04-22 07:52] VITALS: RESP 18; TEMP 97.9
[2021-04-22] MEDS ORDERED: MORPHINE SULFATE 4 MG/ML SYRINGE IV STA (08:01)
[2021-04-22] MEDS ORDERED: SODIUM CHLORIDE 0.9% 1,000 ML IV STA (08:01)
--- NOTE | 2021-04-22 08:04 | ED ---
General Adult HPI - General Chief complaint: Abdominal Pain Stated complaint: lower abd pain Time Seen by Provider: 04/22/21 07:52 Source: patient, family, RN notes reviewed Mode of arrival: ambulatory Limitations: no limitations - History of Present Illness Initial comments: Patient is a pleasant 85-year-old female presenting to the emergency Department with complaints of lower abdominal discomfort. Onset of symptoms was a day ago. There is also some mild discomfort to lower back. Patient does have some urinary urgency and dysuria. Patient did have similar symptoms a month or more ago associated with urinary tract infection however patient is concerned there could be something worse such as her diverticulitis. No fevers. Patient has had some chills. Discomfort is moderate and persistent. - Related Data Home Medications Medication Instructions Recorded Confirmed Escitalopram [Lexapro] 10 mg PO DAILY 08/09/15 02/25/20 Levothyroxine Sodium [Synthroid] 88 mcg PO DAILY 08/09/15 02/25/20 Omeprazole [PriLOSEC] 20 mg PO DAILY 08/09/15 02/27/20 Albuterol Inhaler (Mhu) [Ventolin 1 - 2 puff INHALATION RT-Q6H PRN 04/06/18 02/27/20 Hfa Inhaler] Fluticasone/Salmeterol [Advair 1 inhalation PO BID 04/06/18 02/27/20 250-50 Diskus] Dim Supplement 1 dose PO DAILY 05/21/19 02/25/20 Glutathione - Supplement 700 mg PO DAILY 05/21/19 02/25/20 Montelukast [Singulair] 10 mg PO DAILY 05/21/19 02/25/20 Progesterone - Bih 1 dose PO DAILY 05/21/19 02/25/20 Turmeric Root Extract [Turmeric] 500 mg PO DAILY 05/21/19 02/25/20 armodafiniL [Nuvigil] 50 mg PO QAM 05/21/19 02/27/20 Previous Rx's Medication Instructions Recorded EPINEPHrine [Epipen 2-Jeremy] 0.3 mg .ROUTE ONCE PRN #1 07/03/18 auto.injct Sulfamethox-Tmp 800-160Mg [Bactrim 1 each PO Q12HR #20 tab 04/22/21 DS 800-160 mg] Allergies Allergy/AdvReac Type Severity Reaction Status Date / Time Sesame Seed Allergy Severe Anaphylaxis Verified 04/22/21 07:50 adhesive tape AdvReac Unknown Itching Verified 04/22/21 07:50 ephedrine AdvReac Rapid Verified 04/22/21 07:50 Heart Rate lansoprazole [From Prevacid] AdvReac Nausea & Verified 04/22/21 07:50 Vomiting & Diarrhea Review of Systems ROS Statement: Those systems with pertinent positive or pertinent negative responses have been documented in the HPI. ROS Other: All systems not noted in ROS Statement are negative. Constitutional: Reports: chills. Denies: fever Eyes: Denies: eye pain ENT: Denies: ear pain Respiratory: Denies: cough Cardiovascular: Denies: chest pain Endocrine: Denies: fatigue Gastrointestinal: Reports: as per HPI, abdominal pain. Denies: nausea, vomiting, diarrhea Genitourinary: Reports: as per HPI, urgency, dysuria Musculoskeletal: Reports: as per HPI Skin: Denies: rash Neurological: Denies: weakness Past Medical History Past Medical History: Asthma, Fibromyalgia, GERD/Reflux, Thyroid Disorder Additional Past Medical History / Comment(s): Hx of kidney stones., narcolepsy, stomach polyps, lactose intolerant, IBS, states trouble "finishing her bowel movements". History of Any Multi-Drug Resistant Organisms: None Reported Past Surgical History: Cholecystectomy Additional Past Surgical History / Comment(s): kidney stones. COLONOSCOPY/EGD Past Anesthesia/Blood Transfusion Reactions: No Reported Reaction, Motion Sickness Past Psychological History: No Psychological Hx Reported Smoking Status: Never smoker Past Alcohol Use History: Occasional Past Drug Use History: None Reported - Past Family History Mother Family Medical History: No Reported History General Exam Limitations: no limitations General appearance: alert, in no apparent distress Head exam: Present: normocephalic Eye exam: Present: normal appearance Neck exam: Present: normal inspection Respiratory exam: Present: normal lung sounds bilaterally Cardiovascular Exam: Present: regular rate, normal rhythm Expanded Peripheral pulses: 2+: Dorsalis Pedis (R), Dorsalis Pedis (L) GI/Abdominal exam: Present: soft. Absent: distended, tenderness Extremities exam: Present: normal inspection. Absent: pedal edema, calf tenderness Neurological exam: Present: alert Psychiatric exam: Present: normal affect, normal mood Skin exam: Present: normal color Course Vital Signs 04/22/21 07:50 Temperature 97.9 F Pulse Rate 86 Respiratory 18 Rate Blood Pressure 121/80 O2 Sat by Pulse 95 Oximetry Medical Decision Making - Medical Decision Making Patient reevaluated and updated - Lab Data Result diagrams: 04/22/21 08:14 04/22/21 08:14 Lab Results 04/22/21 04/22/21 04/22/21 Range/Units 08:14 08:14 08:14 WBC 8.0 (3.8-10.6) k/uL RBC 4.43 (3.80-5.40) m/uL Hgb 15.2 (11.4-16.0) gm/dL Hct 43.8 (34.0-46.0) % MCV 98.9 (80.0-100.0) fL MCH 34.4 (25.0-35.0) pg MCHC 34.7 (31.0-37.0) g/dL RDW 12.2 (11.5-15.5) % Plt Count 266 (150-450) k/uL MPV 6.9 Neutrophils % 75 % Lymphocytes % 17 % Monocytes % 4 % Eosinophils % 2 % Basophils % 1 % Neutrophils # 6.0 (1.3-7.7) k/uL Lymphocytes # 1.3 (1.0-4.8) k/uL Monocytes # 0.3 (0-1.0) k/uL Eosinophils # 0.2 (0-0.7) k/uL Basophils # 0.0 (0-0.2) k/uL PT (9.0-12.0) sec INR (<1.2) APTT (22.0-30.0) sec Sodium 137 (137-145) mmol/L Potassium 4.6 (3.5-5.1) mmol/L Chloride 103 (98-107) mmol/L Carbon Dioxide 25 (22-30) mmol/L Anion Gap 9 mmol/L BUN 15 (7-17) mg/dL Creatinine 0.59 (0.52-1.04) mg/dL Est GFR (CKD-EPI)AfAm >90 (>60 ml/min/1.73 sqM) Est GFR (CKD-EPI)NonAf >90 (>60 ml/min/1.73 sqM) Glucose 103 H (74-99) mg/dL Calcium 9.8 (8.4-10.2) mg/dL Total Bilirubin 0.4 (0.2-1.3) mg/dL AST 26 (14-36) U/L ALT 20 (4-34) U/L Alkaline Phosphatase 68 (38-126) U/L Total Protein 6.5 (6.3-8.2) g/dL Albumin 4.2 (3.5-5.0) g/dL Amylase 47 (30-110) U/L Lipase 303 H (23-300) U/L Urine Color Yellow Urine Appearance Cloudy H (Clear) Urine pH 7.0 (5.0-8.0) Ur Specific [place] 1.022 (1.001-1.035) Urine Protein 1+ H (Negative) Urine Glucose (UA) Negative (Negative) Urine Ketones Negative (Negative) Urine Blood Moderate H (Negative) Urine Nitrite Negative (Negative) Urine Bilirubin Negative (Negative) Urine Urobilinogen <2.0 (<2.0) mg/dL Ur Leukocyte Esterase Large H (Negative) Urine RBC >182 H (0-5) /hpf Urine WBC >182 H (0-5) /hpf Urine WBC Clumps Many H (None) /hpf Ur Squamous Epith Cells 1 (0-4) /hpf Urine Mucus Occasional H (None) /hpf 04/22/21 Range/Units 08:14 WBC (3.8-10.6) k/uL RBC (3.80-5.40) m/uL Hgb (11.4-16.0) gm/dL Hct (34.0-46.0) % MCV (80.0-100.0) fL MCH (25.0-35.0) pg MCHC (31.0-37.0) g/dL RDW (11.5-15.5) % Plt Count (150-450) k/uL MPV Neutrophils % % Lymphocytes % % Monocytes % % Eosinophils % % Basophils % % Neutrophils # (1.3-7.7) k/uL Lymphocytes # (1.0-4.8) k/uL Monocytes # (0-1.0) k/uL Eosinophils # (0-0.7) k/uL Basophils # (0-0.2) k/uL PT 9.8 (9.0-12.0) sec INR 0.9 (<1.2) APTT 22.1 (22.0-30.0) sec Sodium (137-145) mmol/L Potassium (3.5-5.1) mmol/L Chloride (98-107) mmol/L Carbon Dioxide (22-30) mmol/L Anion Gap mmol/L BUN (7-17) mg/dL Creatinine (0.52-1.04) mg/dL Est GFR (CKD-EPI)AfAm (>60 ml/min/1.73 sqM) Est GFR (CKD-EPI)NonAf (>60 ml/min/1.73 sqM) Glucose (74-99) mg/dL Calcium (8.4-10.2) mg/dL Total Bilirubin (0.2-1.3) mg/dL AST (14-36) U/L ALT (4-34) U/L Alkaline Phosphatase (38-126) U/L Total Protein (6.3-8.2) g/dL Albumin (3.5-5.0) g/dL Amylase (30-110) U/L Lipase (23-300) U/L Urine Color Urine Appearance (Clear) Urine pH (5.0-8.0) Ur Specific [place] (1.001-1.035) Urine Protein (Negative) Urine Glucose (UA) (Negative) Urine Ketones (Negative) Urine Blood (Negative) Urine Nitrite (Negative) Urine Bilirubin (Negative) Urine Urobilinogen (<2.0) mg/dL Ur Leukocyte Esterase (Negative) Urine RBC (0-5) /hpf Urine WBC (0-5) /hpf Urine WBC Clumps (None) /hpf Ur Squamous Epith Cells (0-4) /hpf Urine Mucus (None) /hpf - Radiology Data Radiology results: report reviewed (Computed tomography scan concerning for bladder thickening, correlate for UTI or cystitis) Disposition Clinical Impression: Urinary tract infection, Abdominal pain Disposition: HOME SELF-CARE Condition: Stable Instructions (If sedation given, give patient instructions): Urinary Tract Infection in Women (ED) Additional Instructions: Please follow-up with primary care physician in the next couple days for recheck. Have primary care physician review culture results. Return for uncontrolled pain, fever, vomiting, worsening symptoms or other concerns. Prescription for antibiotics has been sent to pharmacy Prescriptions: Sulfamethox-Tmp 800-160Mg [Bactrim DS 800-160 mg] 1 each PO Q12HR #20 tab Is patient prescribed a controlled substance at d/c from ED?: No Referrals: Tavares Gallegos III, MD [Primary Care Provider] - 1-2 days Time of Disposition: 09:48
[2021-04-22 08:27] LABS: Basophils % (A) 1 %; Eosinophils # (A) 0.2 k/uL (0-0.7); Eosinophils % (A) 2 %; HCT 43.8 % (34.0-46.0); HGB 15.2 gm/dL (11.4-16.0); Lymphocytes # (A) 1.3 k/uL (1.0-4.8); Lymphocytes % (A) 17 %; MCH 34.4 pg (25.0-35.0); MCHC 34.7 g/dL (31.0-37.0); MCV 98.9 fL (80.0-100.0); Mean Platelet Volume 6.9; Monocytes # (A) 0.3 k/uL (0-1.0); Monocytes % (A) 4 %; Neutrophils % (A) 75 %; Platelet Count 266 k/uL (150-450); RBC 4.43 m/uL (3.80-5.40); RDW 12.2 % (11.5-15.5)
[2021-04-22 08:38] LABS: Appearance,Urine Cloudy (Clear); Bilirubin,Urine Negative (Negative); Blood,Urine Moderate (Negative); Color,Urine Yellow; Glucose,Urine (UA) Negative (Negative); Ketones,Urine Negative (Negative); Leukocyte Esterase,Urine Large (Negative); Mucus,Urine Occasional /hpf; Nitrite,Urine Negative (Negative); Protein,Urine 1+ (Negative); RBC,Urine >182 /hpf (0-5); Specific Gravity,Urine 1.022 (1.001-1.035); Squamous Epithelial Cell,Urine 1 /hpf (0-4); Urobilinogen,Urine <2.0 mg/dL (<2.0); WBC,Urine >182 /hpf (0-5)
[2021-04-22 08:44] LABS: INR 0.9 (<1.2); Partial Thromboplastin Time 22.1 sec (22.0-30.0); Prothrombin Time 9.8 sec (9.0-12.0)
[2021-04-22 08:46] LABS: ALT 20 U/L (4-34); AST 26 U/L (14-36); African American GFR (CKD) >90 (>60 ml/min/1.73 sqM); Albumin 4.2 g/dL (3.5-5.0); Alkaline Phosphatase 68 U/L (38-126); Amylase 47 U/L (30-110); Anion Gap 9 mmol/L; Blood Urea Nitrogen 15 mg/dL (7-17); Calcium 9.8 mg/dL (8.4-10.2); Carbon Dioxide 25 mmol/L (22-30); Chloride 103 mmol/L (98-107); Glucose 103 mg/dL (74-99); Lipase 303 U/L (23-300); Non-African American GFR(CKD) >90 (>60 ml/min/1.73 sqM); Potassium 4.6 mmol/L (3.5-5.1); Sodium 137 mmol/L (137-145); Total Bilirubin 0.4 mg/dL (0.2-1.3); Total Protein 6.5 g/dL (6.3-8.2)
--- NOTE | 2021-04-22 09:20 | CT ---
EXAMINATION TYPE: CT abdomen pelvis w con DATE OF EXAM: 04/22/2021 HISTORY: Generalized lower abdominal pain, history of diverticulitis and renal stones CT DLP: 1298.2mGycm Automated Exposure Control for Dose Reduction was Utilized. CONTRAST: CT scan of the abdomen and pelvis is performed without oral but with IV Contrast, patient injected wi th 100 ml mL of Isovue 300. COMPARISON: None. FINDINGS: LUNG BASES: No significant abnormality is appreciated. LIVER/GB: Cholecystectomy clips are present. PANCREAS: No significant abnormality is seen. SPLEEN: No significant abnormality is seen. ADRENALS: No significant abnormality is seen. KIDNEYS: There is 5 mm round fat density lesion posteriorly midpole right kidney axial image 40 suspi cious for small lipoma or angiomyolipoma. No renal stones identified currently. Symmetric cortical me dullary uptake and excretion without hydronephrosis seen bilaterally. Bladder is suboptimally distend ed but has mild to moderate concentric wall thickening with suspicious mild and wall mucosal enhancem ent and mild fat stranding or ill-definition to the peripheral wall or serosal surface BOWEL: There is 4.5 cm duodenal diverticulum along the third portion coronal image 51 with air-fluid level. Slightly suboptimal evaluation of bowel without enteric contrast. Stomach poorly distended and thus suboptimally evaluated. No suspicious small or large bowel dilatation. Normal-appearing appendi x in the right lower quadrant. Slightly redundant sigmoid colon. No significant diverticular disease or CT evidence for acute diverticulitis. UTERUS/ADNEXA: Anteverted uterus. Normal size ovaries. Scattered pelvic phleboliths. LYMPH NODES: No greater than 1cm abdominal or pelvic lymph nodes are appreciated. OSSEOUS STRUCTURES: No significant abnormality is seen. OTHER: Small to moderate-sized fat-containing umbilical hernia. IMPRESSION: [id number] concentric wall thickening and urinary bladder with mild surrounding fat stranding suspicious for acute bladder infection or cystitis. Correlate clinically and with urine la b values.
[2021-04-22] MEDS ORDERED: cefTRIAXone IN SWFI 1,000 MG/10 ML SYRINGE IVP STA (09:47)
[2021-04-22 10:14] VITALS: BP 118/74; PULSE 81
== END 2021-04-22 10:00 | disposition home or self-care (01) ==
LOC: EC 07:49
DX: N39.0 Urinary tract infection, site not specified (principal); R39.15 Urgency of urination; K21.9 Gastro-esophageal reflux disease without esophagitis; J45.909 Unspecified asthma, uncomplicated; K58.9 Irritable bowel syndrome, unspecified; M79.7 Fibromyalgia; Z87.442 Personal history of urinary calculi; Z79.51 Long term (current) use of inhaled steroids; Z90.49 Acquired absence of other specified parts of digestive tract
CPT/HCPCS: 36415; 80053; 82150; 83690; 85025; 85610; 85730; 81001; 87086; 74177; 99284; 96374; 96361 ×2; J0696; Q9967

== ENCOUNTER → 2021-07-27 | Outpatient (CLI) | payer MEDICAID ==
--- NOTE | 2021-07-28 12:24 | MM ---
Reason for exam: screening (asymptomatic). Last mammogram was performed 1 year and 1 month ago. History: Patient is postmenopausal and is nulliparous. Benign MG stereo VAD BX LT of the left breast, March 29, 2014. Benign US breast needle core LT of the left breast, March 29, 2014. Took hormonal contraceptives for 40 years beginning at age 11. Taking estrogen for 5 years. Taking progesterone for 5 years. Physical Findings: A clinical breast exam by your physician is recommended on an annual basis and results should be correlated with mammographic findings. MG 3D Screening Mammo W/Cad Bilateral CC and MLO view(s) were taken. Prior study comparison: June 13, 2020, bilateral MG 3d diag mammo w/cad [facility]. May 19, 2018, bilateral MG 3d screening mammo w/cad. The breast tissue is heterogeneously dense. This may lower the sensitivity of mammography. No significant changes when compared with prior studies. ASSESSMENT: Benign, BI-RAD 2 RECOMMENDATION: Routine screening mammogram of both breasts in 1 year.
== END | disposition home or self-care (01) ==
LOC: RADMAMWWP 13:03
PROVIDERS: ATTEND Obstetrics & Gynecology
DX: Z12.31 Encounter for screening mammogram for malignant neoplasm of breast (principal); Z78.0 Asymptomatic menopausal state
CPT/HCPCS: 77063; 77067

== ENCOUNTER → 2021-10-14 | Outpatient (CLI) | payer MEDICAID ==
--- NOTE | 2021-10-14 15:46 | XR ---
EXAMINATION TYPE: XR ankle complete RT DATE OF EXAM: 10/14/2021 COMPARISON: NONE HISTORY: Pain FINDINGS: Three views of the ankle demonstrate the ankle mortise to be intact and symmetric. There appears to b e an avulsion fracture of the medial malleolus. A large spurs are seen involving the calcaneus. Tiny bony density adjacent to the dorsal surface of the talus is indeterminant. IMPRESSION: 1. Age indeterminate avulsion fracture medial malleolus correlate with point tenderness.
--- NOTE | 2021-10-14 15:47 | XR ---
EXAMINATION TYPE: XR shoulder complete LT DATE OF EXAM: 10/14/2021 COMPARISON: NONE HISTORY: Pain TECHNIQUE: Three views are submitted. FINDINGS: The osseous structures are intact. There is no acute fracture or dislocation. The AC joint arthropat hy noted. IMPRESSION: 1. AC joint arthropathy.
== END | disposition home or self-care (01) ==
LOC: RADXRMAIN 14:47
PROVIDERS: ATTEND Family Medicine
DX: M12.812 Other specific arthropathies, not elsewhere classified, left shoulder (principal); S82.51XA Displaced fracture of medial malleolus of right tibia, initial encounter for closed fracture; X58.XXXA Exposure to other specified factors, initial encounter

== ENCOUNTER → 2022-01-30 | Outpatient (CLI) | payer MEDICAID ==
[2022-01-30 10:19] LABS: Appearance,Urine Clear (Clear); Bilirubin,Urine Negative (Negative); Blood,Urine Negative (Negative); Color,Urine Yellow; Glucose,Urine (UA) Negative (Negative); Ketones,Urine Negative (Negative); Leukocyte Esterase,Urine Negative (Negative); Nitrite,Urine Negative (Negative); Protein,Urine Negative (Negative); Specific Gravity,Urine 1.014 (1.001-1.035); Urobilinogen,Urine <2.0 mg/dL (<2.0)
[2022-01-30 16:04] LABS: Basophils # (A) 0.04 X 10*3/uL (0.00-0.10); Eosinophils # (A) 0.17 X 10*3/uL (0.04-0.35); Eosinophils % (A) 4.2 %; HCT 39.8 % (37.2-46.3); HGB 13.8 g/dL (12.0-15.0); Immature Grans, Automated 0.2 %; Lymphocytes # (A) 1.38 X 10*3/uL (0.90-5.00); Lymphocytes % (A) 34.2 %; MCH 32.5 pg (27.0-32.0); MCHC 34.7 g/dL (32.0-37.0); MCV 93.9 fL (80.0-97.0); Mean Platelet Volume 9.3 fL (9.5-12.2); Monocytes # (A) 0.32 X 10*3/uL (0.20-1.00); Monocytes % (A) 7.9 %; NRBC Per 100 WBC 0 /100 WBCS (0.0-0.0); Neutrophils # (A) 2.12 X 10*3/uL (1.80-7.70); Neutrophils % (A) 52.5 %; Platelet Count 246 X 10*3/uL (140-440); RBC 4.24 X 10*6/uL (4.10-5.20); RDW 11.9 % (11.5-14.5); WBC 4.04 X 10*3/uL (4.50-10.00)
[2022-01-30 16:13] LABS: ALT 22 U/L (8-44); AST 24 U/L (13-35); African American GFR (CKD) 119.2 (60.0-200.0); Albumin 4.4 g/dL (3.8-4.9); Albumin/Globulin Ratio 2.27 (1.60-3.17); Alkaline Phosphatase 67 U/L (41-126); BUN/Creat Ratio 15.46 Ratio (12.00-20.00); Blood Urea Nitrogen 8.6 mg/dL (9.0-27.0); Calcium 9.4 mg/dL (8.7-10.3); Carbon Dioxide 24.7 mmol/L (20.0-27.5); Chloride 104 mmol/L (96-109); Chol/HDL Ratio 5.73 Ratio; Globulin 1.9 g/dL (1.6-3.3); Glucose 99 mg/dL (70-110); LDL Cholesterol,Calculated 164.4 mg/dL (0.0-131.0); Non-African American GFR(CKD) 102.8 (60.0-200.0); Potassium 4.2 mmol/L (3.5-5.5); Sodium 139 mmol/L (135-145); Total Protein 6.3 g/dL (6.2-8.2)
== END | disposition home or self-care (01) ==
LOC: LABWHC1 09:56
PROVIDERS: ATTEND Family Medicine
DX: Z00.01 Encounter for general adult medical examination with abnormal findings (principal); E66.9 Obesity, unspecified; E78.5 Hyperlipidemia, unspecified; R30.0 Dysuria
CPT/HCPCS: 36415; 80053; 80061; 81003; 83036; 85025

== ENCOUNTER 2022-05-30 07:55 | Emergency (ER) | payer MEDICAID ==
[2022-05-30 08:03] VITALS: BP 103/73; PULSE 92; RESP 20; TEMP 98.3
[2022-05-30] MEDS ORDERED: ACETAMINOPHEN TAB 500 MG TAB PO STA (08:24)
--- NOTE | 2022-05-30 08:46 | ED ---
Lower Extremity Injury HPI - General Chief Complaint: Extremity Injury, Lower Stated Complaint: left ankle injury Time Seen by Provider: 05/30/22 08:04 Source: patient, RN notes reviewed Mode of arrival: ambulatory Limitations: no limitations - History of Present Illness Initial Comments: 56-year-old female presents emergency Department chief complaint of left ankle injury, left thumb pain. Patient states that she tripped going up some stairs states she has some retinal issues that makes the exception difficult. Patient states she twisted her left ankle there is moderate swelling. Patient states she had no head and CONSCIOUS. Patient has a 4 or proximal leg pain. Patient states she had a fall and had multiple fractures in the past and social complains of left thumb pain which has been worsening. - Related Data Home Medications Medication Instructions Recorded Confirmed Escitalopram [Lexapro] 10 mg PO DAILY 08/09/15 02/25/20 Levothyroxine Sodium [Synthroid] 88 mcg PO DAILY 08/09/15 02/25/20 Omeprazole [PriLOSEC] 20 mg PO DAILY 08/09/15 02/27/20 Albuterol Inhaler [Ventolin Hfa 1 - 2 puff INHALATION RT-Q6H PRN 04/06/18 02/27/20 Inhaler] Fluticasone Propion/Salmeterol 1 inhalation PO BID 04/06/18 02/27/20 [Advair 250-50 Diskus] Dim Supplement 1 dose PO DAILY 05/21/19 02/25/20 Glutathione - Supplement 700 mg PO DAILY 05/21/19 02/25/20 Montelukast [Singulair] 10 mg PO DAILY 05/21/19 02/25/20 Progesterone - Bih 1 dose PO DAILY 05/21/19 02/25/20 Turmeric Root Extract [Turmeric] 500 mg PO DAILY 05/21/19 02/25/20 armodafiniL [Nuvigil] 50 mg PO QAM 05/21/19 02/27/20 Previous Rx's Medication Instructions Recorded EPINEPHrine [Epipen 2-Jeremy] 0.3 mg .ROUTE ONCE PRN #1 07/03/18 auto.injct Phenazopyridine [Pyridium] 200 mg PO TID #6 tablet 04/22/21 Sulfamethox-Tmp 800-160Mg [Bactrim 1 each PO Q12HR #20 tab 04/22/21 DS 800-160 mg] Allergies Allergy/AdvReac Type Severity Reaction Status Date / Time Sesame Seed Allergy Severe Anaphylaxis Verified 05/30/22 08:03 pantoprazole [From Protonix] Allergy Nausea & Verified 05/30/22 08:03 Vomiting adhesive tape AdvReac Unknown Itching Verified 05/30/22 08:03 ephedrine AdvReac Rapid Verified 05/30/22 08:03 Heart Rate lansoprazole [From Prevacid] AdvReac Nausea & Verified 05/30/22 08:03 Vomiting & Diarrhea Review of Systems ROS Statement: Those systems with pertinent positive or pertinent negative responses have been documented in the HPI. ROS Other: All systems not noted in ROS Statement are negative. Past Medical History Past Medical History: Asthma, Fibromyalgia, GERD/Reflux, Thyroid Disorder Additional Past Medical History / Comment(s): Hx of kidney stones., narcolepsy, stomach polyps, lactose intolerant, IBS, states trouble "finishing her bowel movements". History of Any Multi-Drug Resistant Organisms: None Reported Past Surgical History: Cholecystectomy Additional Past Surgical History / Comment(s): kidney stones. COLONOSCOPY/EGD Past Anesthesia/Blood Transfusion Reactions: No Reported Reaction, Motion Sickness Past Psychological History: No Psychological Hx Reported Smoking Status: Never smoker Past Alcohol Use History: Occasional Past Drug Use History: None Reported - Past Family History Mother Family Medical History: No Reported History General Exam Limitations: no limitations General appearance: alert, in no apparent distress Head exam: Present: atraumatic, normocephalic, normal inspection Respiratory exam: Present: normal lung sounds bilaterally. Absent: respiratory distress, wheezes, rales, rhonchi, stridor Cardiovascular Exam: Present: regular rate, normal rhythm, normal heart sounds. Absent: systolic murmur, diastolic murmur, rubs, gallop, clicks Extremities exam: Present: other (Left ankle there is moderate swelling, ecchymosis no distal foot tenderness neurovascular intact there is no proximal tib-fib tenderness, left thumb there is moderate tenderness pain with range of motion there is no snuffbox tenderness no other areas of tenderness swelling or ecchymosis noted capill) Course Vital Signs 05/30/22 08:01 Temperature 98.3 F Pulse Rate 92 Respiratory 20 Rate Blood Pressure 103/73 O2 Sat by Pulse 99 Oximetry Medical Decision Making - Medical Decision Making X-ray shows possible acute on chronic injury, medial malleolar fracture. Patient was splinted and will follow-up with orthopedics as she seen orthopedics in the past. Patient's thumb shows old traumatic injury patient also follow-up orthopedics return parameters were discussed. Disposition Clinical Impression: Fracture of distal end of tibia, Pain of left thumb Disposition: HOME SELF-CARE Condition: Stable Instructions (If sedation given, give patient instructions): Leg Fracture (ED) Additional Instructions: Please return to the Emergency Department if symptoms worsen or any other concerns. Is patient prescribed a controlled substance at d/c from ED?: No Referrals: Tavares Gallegos III, MD [Primary Care Provider] - 1-2 days Christopher Carroll MD [STAFF PHYSICIAN] - 1-2 days Time of Disposition: 09:25
--- NOTE | 2022-05-30 08:51 | XR ---
EXAMINATION TYPE: XR ankle complete LT DATE OF EXAM: 05/30/2022 CLINICAL HISTORY: Pain. TECHNIQUE: Frontal, lateral and oblique images of the left ankle are obtained. COMPARISON: None. FINDINGS: Well-defined ossific rounded fragments from the medial malleolus favor old avulsion type fr actures but there is mild soft tissue swelling at this level with some slightly more irregular fragme nts. Correlate for acute on chronic injury. Lateral malleolus is intact. The ankle mortise appears wi thin normal limits. Incidental small to moderate-sized posterior superior calcaneal spur. IMPRESSION: As above.
--- NOTE | 2022-05-30 08:53 | XR ---
EXAMINATION TYPE: XR hand complete LT DATE OF EXAM: 05/30/2022 CLINICAL HISTORY: Pain worse in thumb after overuse injury. TECHNIQUE: Frontal, lateral and oblique images of the left hand are obtained. COMPARISON: None. FINDINGS: Mild to moderate narrowing at the PIP and DIP joints of the phalanges. More moderate narrow ing first metacarpophalangeal and first interphalangeal joint with mild to moderate spurring in the l atter. There is moderate narrowing at base of first metacarpal. There is well-defined 4 to 5 mm ossif ic density radial to the distal scaphoid of uncertain etiology possible product of old trauma or frac ture, possible heterotopic ossification. No acute displaced fracture is seen. The overlying soft tis jann appears unremarkable. IMPRESSION: As above.
== END 2022-05-30 09:47 | disposition home or self-care (01) ==
LOC: EC 07:55
DX: S82.302A Unspecified fracture of lower end of left tibia, initial encounter for closed fracture (principal); J45.909 Unspecified asthma, uncomplicated; L23.1 Allergic contact dermatitis due to adhesives; M79.7 Fibromyalgia; K21.9 Gastro-esophageal reflux disease without esophagitis; E07.9 Disorder of thyroid, unspecified; Z79.83 Long term (current) use of bisphosphonates; Z79.890 Hormone replacement therapy; Z79.51 Long term (current) use of inhaled steroids; Z91.018 Allergy to other foods; Z88.8 Allergy status to other drugs, medicaments and biological substances; Z88.1 Allergy status to other antibiotic agents; W18.40XA Slipping, tripping and stumbling without falling, unspecified, initial encounter
CPT/HCPCS: 29515; 99283

== ENCOUNTER → 2022-08-04 | Outpatient (CLI) | payer MEDICAID ==
--- NOTE | 2022-08-05 15:56 | MM ---
Reason for Exam: Screening (asymptomatic). Last screening mammogram was performed 12 month(s) ago. Patient History: Menarche at age 11. Patient has no children. Postmenopausal. Currently using Estrogen, for 5 years. Currently using Progesterone, for 5 years. Hormonal Contraceptives, starting at age 11 for 40 years. 03/29/2014, Benign Core Biopsy on the left side. 03/29/2014, Benign Core Biopsy on the left side. Risk Values: Clara 5 year model risk: 2.2%. NCI Lifetime model risk: 12.5%. Prior Study Comparison: 05/19/2018 Bilateral Screening Mammogram, [facility]. 06/13/2020 Bilateral Diagnostic Mammogram, [facility]. 07/27/2021 Bilateral Screening Mammogram, [facility]. Tissue Density: The breast tissue is heterogeneously dense. This may lower the sensitivity of mammography. Findings: Analyzed By CAD. Pattern is symmetrical and stable. Benign scattered calcifications are present. No suspicious groups of microcalcifications, spiculated or lobular masses, architectural distortion or other secondary signs of malignancy are mammographically apparent. Overall Assessment: Benign, BI-RAD 2 Management: Screening Mammogram of both breasts in 1 year. A negative mammogram report should not preclude additional follow up of suspicious palpable abnormalities. Patient should continue monthly self breast exam. A clinical breast exam by your physician is recommended on an annual basis and results should be correlated with mammographic findings. Electronically signed and approved by: George Sebastian D.O. Radiologis
== END | disposition home or self-care (01) ==
LOC: RADMAMWWP 14:07
PROVIDERS: ATTEND Obstetrics & Gynecology
DX: Z12.31 Encounter for screening mammogram for malignant neoplasm of breast (principal); Z78.0 Asymptomatic menopausal state; Z98.890 Other specified postprocedural states
CPT/HCPCS: 77063; 77067

== ENCOUNTER → 2023-08-09 | Outpatient (CLI) | payer MEDICAID ==
--- NOTE | 2023-08-10 14:17 | MM ---
Reason for Exam: Screening (asymptomatic). Last mammogram was performed 1 year(s) and 1 month(s) ago. Patient History: Menarche at age 11. Patient has no children. Postmenopausal. Currently using Estrogen, for 5 years. Currently using Progesterone, for 5 years. Hormonal Contraceptives, starting at age 11 for 40 years. 03/29/2014, Benign Core Biopsy on the left side. 03/29/2014, Benign Core Biopsy on the left side. Risk Values: Clara 5 year model risk: 2.3%. NCI Lifetime model risk: 12.2%. Prior Study Comparison: 06/13/2020 Bilateral Diagnostic Mammogram, [facility]. 07/27/2021 Bilateral Screening Mammogram, [facility]. 08/04/2022 Bilateral MG 3D screening mammo w/cad, [facility]. Tissue Density: The breast tissue is heterogeneously dense. This may lower the sensitivity of mammography. Findings: Analyzed By CAD. Left breast biopsy clip. There is no suspicious group of microcalcifications or new suspicious mass. Benign-appearing calcifications bilaterally. Overall Assessment: Benign, BI-RAD 2 Management: Screening Mammogram of both breasts in [address] [facility] will attempt to contact patient to return for supplemental views and ultrasound if indicated. Patient should continue monthly self-breast exams. A clinical breast exam by your physician is recommended on an annual basis. This exam should not preclude additional follow-up of suspicious palpable abnormalities. Note on Clara scores and lifetime risk: 1. A Clara score greater than 3% is considered moderate risk. If this is the case, consider specialist referral to assess eligibility for a risk reducing agent. 2. If overall lifetime risk for the development of breast cancer is 20% or higher, the patient may qualify for future screening with alternating mammogram and breast MRI. Electronically signed and approved by: Andrew Hammer DO
== END | disposition home or self-care (01) ==
LOC: RADMAMWWP 13:01
PROVIDERS: ATTEND Obstetrics & Gynecology
DX: Z12.31 Encounter for screening mammogram for malignant neoplasm of breast (principal); Z78.0 Asymptomatic menopausal state
CPT/HCPCS: 77063; 77067

== ENCOUNTER → 2023-10-24 | Outpatient (CLI) | payer MEDICAID ==
[2023-10-24 16:20] LABS: Basophils # (A) 0.05 X 10*3/uL (0.00-0.10); Basophils % (A) 1.1 %; Eosinophils # (A) 0.26 X 10*3/uL (0.04-0.35); Eosinophils % (A) 5.8 %; HCT 42.5 % (37.2-46.3); HGB 14.3 g/dL (12.0-15.0); Lymphocytes # (A) 1.51 X 10*3/uL (0.90-5.00); Lymphocytes % (A) 33.6 %; MCH 32.2 pg (27.0-32.0); MCHC 33.6 g/dL (32.0-37.0); MCV 95.7 FL (80.0-97.0); Monocytes # (A) 0.42 X 10*3/uL (0.20-1.00); Monocytes % (A) 9.3 %; NRBC Per 100 WBC 0 X 10*3/uL (0.00-0.01); Neutrophils # (A) 2.25 X 10*3/uL (1.80-7.70); Platelet Count 261 X 10*3/uL (140-440); RBC 4.44 X 10*6/uL (4.10-5.20); RDW 11.9 % (11.5-14.5)
[2023-10-24 16:29] LABS: ALT 31 U/L (8-44); AST 30 U/L (13-35); Albumin 4.6 g/dL (3.8-4.9); Albumin/Globulin Ratio 2.56 Ratio (1.60-3.17); Alkaline Phosphatase 65 U/L (41-126); BUN/Creat Ratio 21.33 Ratio (12.00-20.00); Blood Urea Nitrogen 12.8 mg/dL (9.0-27.0); Calcium 9.8 mg/dL (8.7-10.3); Carbon Dioxide 28.9 mmol/L (21.6-31.8); Chloride 104 mmol/L (96-109); Globulin 1.8 g/dL (1.6-3.3); Glucose 106 mg/dL (70-110); Potassium 4.5 mmol/L (3.5-5.5); Sodium 143 mmol/L (135-145); Total Bilirubin 0.4 mg/dL (0.3-1.2); Total Protein 6.4 g/dL (6.2-8.2)
[2023-10-24 16:30] LABS: T4, Free (Free Thyroxine) 1.13 ng/dL (0.80-1.80)
== END | disposition home or self-care (01) ==
LOC: LABWHC1 09:47
PROVIDERS: ATTEND Internal Medicine
DX: E78.5 Hyperlipidemia, unspecified (principal); E03.9 Hypothyroidism, unspecified; H35.52 Pigmentary retinal dystrophy; E55.9 Vitamin D deficiency, unspecified
CPT/HCPCS: 36415; 80053; 80061; 82306; 84439; 84443; 84590; 85025

== ENCOUNTER → 2023-12-08 | Outpatient (CLI) | payer MEDICAID ==
[2023-12-08 14:27] LABS: Basophils # (A) 0.04 X 10*3/uL (0.00-0.10); Basophils % (A) 0.7 %; Eosinophils # (A) 0.11 X 10*3/uL (0.04-0.35); HCT 40.6 % (37.2-46.3); HGB 13.8 g/dL (12.0-15.0); Lymphocytes # (A) 1.57 X 10*3/uL (0.90-5.00); Lymphocytes % (A) 28.9 %; MCH 31.9 pg (27.0-32.0); MCV 93.8 FL (80.0-97.0); Mean Platelet Volume 9.2 FL (9.5-12.2); Monocytes # (A) 0.53 X 10*3/uL (0.20-1.00); Monocytes % (A) 9.8 %; NRBC Per 100 WBC 0 X 10*3/uL (0.00-0.01); Neutrophils # (A) 3.15 X 10*3/uL (1.80-7.70); Platelet Count 258 X 10*3/uL (140-440); RBC 4.33 X 10*6/uL (4.10-5.20); RDW 11.8 % (11.5-14.5); WBC 5.43 X 10*3/uL (4.50-10.00)
[2023-12-08 14:40] LABS: INR 0.96 sec (0.93-1.11); Prothrombin Time 10.4 sec (9.9-11.9)
[2023-12-09 11:11] LABS: Protein C Antigen 134 % (72-160)
[2023-12-09 11:54] LABS: Protein S Antigen 103 % (50 - 140)
== END | disposition home or self-care (01) ==
LOC: LABWHC1 10:50
PROVIDERS: ATTEND Internal Medicine
DX: H35.52 Pigmentary retinal dystrophy (principal); H35.60 Retinal hemorrhage, unspecified eye
CPT/HCPCS: 36415; 83036; 85025; 85302; 85305; 85610

== ENCOUNTER → 2024-01-09 | Outpatient (CLI) | payer MEDICAID ==
--- NOTE | 2024-01-09 12:26 | XR ---
EXAMINATION TYPE: XR abdomen 1V DATE OF EXAM: 01/09/2024 11:41 AM CLINICAL INDICATION:Female, 58 years old with history of R10.9 UNSPECIFIED ABDOMINAL PAIN; COMPARISON: None. TECHNIQUE: One radiographic view of the abdomen was obtained. FINDINGS: The bowel gas pattern is nonspecific without dilated loops of small or large bowel. There i s no evidence for organomegaly or pneumoperitoneum. The osseous structures are intact. No abnormal calcifications are present. Fecal material and gas are demonstrated throughout the colon and rectum. Right upper quadrant course significance. Multilevel degeneration changes throughout spine. Mild deg eneration of the hips with osteophyte formation space narrowing. There is pelvic fluid was present. IMPRESSION: 1. Nonspecific bowel gas pattern without radiographic evidence for acute process. 2. Mild bilateral hip 3. Mild to moderate degeneration changes of the spine.
--- NOTE | 2024-01-09 12:53 | XR ---
EXAMINATION TYPE: XR pelvis AP view DATE OF EXAM: 01/09/2024 11:41 AM CLINICAL INDICATION:Female, 58 years old with history of R10.9 UNSPECIFIED ABDOMINAL PAIN; [facility] COMPARISON: 03/07/2019. TECHNIQUE: The pelvis was examined in a single projection. FINDINGS: There is no evidence of fracture or dislocation. There is no soft tissue abnormality. No a bnormal calcifications are present. The spine appears intact. The hips appear intact. Osteophyte form ation of the superior acetabulum bilaterally with mild joint space narrowing. Pelvic phleboliths are present. Severe degeneration changes of the spine. IMPRESSION: 1. No acute osseous pathology. 2. Moderate degeneration changes of the hips.
== END | disposition home or self-care (01) ==
LOC: RADXRMAIN 11:17
PROVIDERS: ATTEND Internal Medicine
DX: M16.0 Bilateral primary osteoarthritis of hip (principal); M47.817 Spondylosis without myelopathy or radiculopathy, lumbosacral region; R10.9 Unspecified abdominal pain
CPT/HCPCS: 72170; 74018

== ENCOUNTER → 2024-01-17 | Outpatient (CLI) | payer MEDICAID ==
--- NOTE | 2024-01-18 11:40 | BD ---
EXAMINATION TYPE: Axial Bone Density DATE OF EXAM: 01/17/2024 CLINICAL HISTORY: 58 years old Female. ICD-10 CODE: Z78.0 ASYMPTOMATIC MENOPAUSAL STATE Height: 5 ft Weight: 172 FRAX RISK QUESTIONS: Alcohol (3 or more units per day): no Family History (Parent hip fracture): no Glucocorticoids (More than 3mos): no (Ex: prednisone, prednisolone, methylprednisolone, dexamethasone, and hydrocortisone). History of Fracture in Adulthood: yes Secondary Osteoporosis: 1. Type 1 Diabetes: no 2. Hyperthyroidism: no 3. Menopause before 45: no 4. Malnutrition: no 5. Chronic liver disease: no Rheumatoid Arthritis: no Current Tobacco Use: no RISK FACTORS HISTORY OF: Surgery to Spine/Hip(right/left)/Wrist (right/left): no MEDICATIONS: Thyroid Medications: yes Which medication: synthroid How Lon years Osteoporosis Medications: none EXAM MEASUREMENTS: Bone mineral densitometry was performed using the [employer] System. Bone mineral density as measured about the Lumbar spine is: ----- L1-L4(G/cm2): 1.344 T Score Values are as follows: ----- L1: 1.9 ----- L2: 1.0 ----- L3: 1.5 ----- L4: 1.0 ----- L1-L4: 1.4 Z Score Values are as follows: ----- L1: 2.7 ----- L2: 1.8 ----- L3: 2.2 ----- L4: 1.8 ----- L1-L4: 2.0 baseline Bone mineral density about the R hip (g/cm2): 0.860 Bone mineral density about the L hip (g/cm2): 0.838 T Score values are as follows: -----R Neck: -1.3 -----L Neck: -1.4 -----R Total: 0.5 -----L Total: 0.4 Z Score values are as follows: -----R Neck: -0.3 -----L Neck: -0.5 -----R Total: 1.1 -----L Total: 1.0 baseline FRAX%s: The graph provided illustrates a 12.8 % chance for a major osteoporotic fx and a 1.1 % chance for the hips probability for fx in 10 years time. IMPRESSION: Normal (Values between +1 and -1 indicate normal bone mass). Consider repeating this study in 5 year s or sooner if there is some new clinical indication. NOTE: T-SCORE=SD OF THE YOUNG ADULT MEAN.
== END | disposition home or self-care (01) ==
LOC: RADBDWWP 10:55
PROVIDERS: ATTEND Internal Medicine
DX: Z13.820 Encounter for screening for osteoporosis (principal); M85.89 Other specified disorders of bone density and structure, multiple sites; Z78.0 Asymptomatic menopausal state
CPT/HCPCS: 77080

== ENCOUNTER → 2024-01-19 | Outpatient (CLI) | payer MEDICAID ==
--- NOTE | 2024-01-19 13:30 | US ---
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 Patient has been visually impaired x 20 years. Hyperlipidemia. TECHNIQUE: Carotid duplex ultrasound examination. Indirect Doppler criteria was utilized. FINDINGS: EXAM MEASUREMENTS: RIGHT: Peak Systolic Velocity (PSV) cm/sec ----- Right CCA: 51.7 ----- Right ICA: 86.6 ----- Right ECA: 53.1 ICA/CCA ratio: 1.7 RIGHT: End Diastole cm/sec ----- Right CCA: 20.4 ----- Right ICA: 29.9 ----- Right ECA: 13.9 LEFT: Peak Systolic Velocity (PSV) cm/sec ----- Left CCA: 69.4 ----- Left ICA: 109.5 ----- Left ECA: 51.4 ICA/CCA ratio: 1.6 LEFT: End Diastole cm/sec ----- Left CCA: 22.3 ----- Left ICA: 43.5 ----- Left ECA: 11.3 VERTEBRALS (direction of flow): Right Vertebral: Antegrade Left Vertebral: Antegrade Rhythm: Normal FISH HEADER NOTES: No elevated velocities. Plaque seen within bilateral bulbs. Bilateral ICA appea r very tortuous- limiting exam. Right ICA appears more tortuous than left. IMPRESSION: 1. Mild atheromatous lack involving the carotid bifurcations. 2. No hemodynamically significant stenosis based on peak systolic velocities and ratios. Criteria for Assigning % of Stenosis / Diameter reduction (Estimation based on the indirect measurements of the internal carotid artery velocities (ICA PSV). 1. Normal (no stenosis)=ICA PSV < 125 cm/s: ratio < 2.0: ICA EDV<40 cm/s. 2. Less than 50% stenosis=ICA PSV < 125 cm/s: ratio < 2.0: ICA EDV<40 cm/s. 3. 50 to 69% stenosis=ICA PSV of 125 to 230 cm/s: ration 2.0 ? 4.0: ICA EDV 40-100 cm/s. 4. Greater than 70% stenosis to near occlusion= ICA PSV > 230 cm/s: ratio > 4.0: ICA EDV > 100 cm/s. 5. Near occlusion= ICA PSV velocities may be low or undetectable: variable ratio and ICA EDV. 6. Total occlusion=unable to detect flow.
== END | disposition home or self-care (01) ==
LOC: RADUSWWP 06:49
PROVIDERS: ATTEND Internal Medicine
DX: I70.90 Unspecified atherosclerosis (principal); H35.63 Retinal hemorrhage, bilateral
CPT/HCPCS: 93880

== ENCOUNTER 2024-04-12 10:14 | Emergency (ER) | payer MEDICAID ==
[2024-04-12 10:23] VITALS: TEMP 98.3
--- NOTE | 2024-04-12 10:59 | ED ---
General Adult HPI - General Chief complaint: Eye Problems Stated complaint: Leye vision loss/return Time Seen by Provider: 04/12/24 10:29 Source: patient, RN notes reviewed, old records reviewed Mode of arrival: ambulatory Limitations: no limitations - History of Present Illness Initial comments: 58-year-old female with acute vision loss in the left eye. Symptoms began prior to arrival and resolved after about 30 minutes. Patient had contacted her o phthalmologist who sent her to the emergency department for further evaluation. Patient has no prior history of TIA or CVA. She had no speech abnormality, no facial droop, no symptoms in her extremities. 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 - Related Data Home Medications Medication Instructions Recorded Confirmed Escitalopram [Lexapro] 10 mg PO DAILY 08/09/15 02/25/20 Levothyroxine Sodium [Synthroid] 88 mcg PO DAILY 08/09/15 02/25/20 Omeprazole [PriLOSEC] 20 mg PO DAILY 08/09/15 02/27/20 Albuterol Inhaler [Ventolin Hfa 1 - 2 puff INHALATION RT-Q6H PRN 04/06/18 02/27/20 Inhaler] Fluticasone Propion/Salmeterol 1 inhalation PO BID 04/06/18 02/27/20 [Advair 250-50 Diskus] Dim Supplement 1 dose PO DAILY 05/21/19 02/25/20 Glutathione - Supplement 700 mg PO DAILY 05/21/19 02/25/20 Montelukast [Singulair] 10 mg PO DAILY 05/21/19 02/25/20 Progesterone - Bih 1 dose PO DAILY 05/21/19 02/25/20 Turmeric Root Extract [Turmeric] 500 mg PO DAILY 05/21/19 02/25/20 armodafiniL [Nuvigil] 50 mg PO QAM 05/21/19 02/27/20 Previous Rx's Medication Instructions Recorded EPINEPHrine [Epipen 2-Jeremy] 0.3 mg .ROUTE ONCE PRN #1 07/03/18 auto.injct Phenazopyridine [Pyridium] 200 mg PO TID #6 tablet 04/22/21 Sulfamethox-Tmp 800-160Mg [Bactrim 1 each PO Q12HR #20 tab 04/22/21 DS 800-160 mg] Allergies Allergy/AdvReac Type Severity Reaction Status Date / Time Sesame Seed Allergy Severe Anaphylaxis Verified 05/30/22 08:03 pantoprazole [From Protonix] Allergy Nausea & Verified 05/30/22 08:03 Vomiting adhesive tape AdvReac Unknown Itching Verified 05/30/22 08:03 ephedrine AdvReac Rapid Verified 05/30/22 08:03 Heart Rate lansoprazole [From Prevacid] AdvReac Nausea & Verified 05/30/22 08:03 Vomiting & Diarrhea Review of Systems ROS Statement: Those systems with pertinent positive or pertinent negative responses have been documented in the HPI. ROS Other: All systems not noted in ROS Statement are negative. Past Medical History Past Medical History: Asthma, Fibromyalgia, GERD/Reflux, Thyroid Disorder Additional Past Medical History / Comment(s): Hx of kidney stones., narcolepsy, stomach polyps, lactose intolerant, IBS, states trouble "finishing her bowel movements", vision impairment History of Any Multi-Drug Resistant Organisms: None Reported Past Surgical History: Cholecystectomy Additional Past Surgical History / Comment(s): kidney stones. COLONOSCOPY/EGD Past Anesthesia/Blood Transfusion Reactions: No Reported Reaction, Motion Sickness Past Psychological History: No Psychological Hx Reported Smoking Status: Never smoker Past Alcohol Use History: Occasional Past Drug Use History: None Reported - Past Family History Mother Family Medical History: No Reported History General Exam Limitations: no limitations General appearance: alert, in no apparent distress Head exam: Present: atraumatic, normocephalic Eye exam: Present: normal appearance, PERRL (Pupils are sluggish bilaterally.), EOMI, other (Limited assessment of the retina nondilated exam) ENT exam: Present: normal exam Neck exam: Present: normal inspection Respiratory exam: Present: normal lung sounds bilaterally. Absent: respiratory distress, wheezes Cardiovascular Exam: Present: regular rate, normal rhythm GI/Abdominal exam: Present: soft. Absent: distended, tenderness Extremities exam: Present: normal inspection, normal capillary refill Neurological exam: Present: alert, oriented X3, CN II-XII intact. Absent: motor sensory deficit Psychiatric exam: Present: normal affect, normal mood Course Vital Signs 04/12/24 04/12/24 04/12/24 10:19 13:00 13:26 Temperature 98.3 F Pulse Rate 81 81 72 Respiratory 18 16 16 Rate Blood Pressure 118/86 115/82 114/72 O2 Sat by Pulse 98 98 98 Oximetry Medical Decision Making - Medical Decision Making Was pt. sent in by a medical professional or institution ([facility]oss, [facility], urgent care, hospital, or longterm...) When possible be specific @ -No Did you speak to anyone other than the patient for history (EMS, parent, family, police, friend...)? What history was obtained from this source @ -No Did you review nursing and triage notes (agree or disagree)? Why? @ -I reviewed and agree with nursing and triage notes Were old charts reviewed (outside hosp., previous admission, EMS record, old EKG, old radiological studies, urgent care reports/EKG's, longterm records)? Report findings @ -No old charts were reviewed Differential CVA Ischemic stroke, hemorrhagic stroke, brain tumor, atypical migraine, Wernicke's encephalopathy, seizure, multiple sclerosis, meningitis, encephalitis, hypoglycemia, Guillain-Pruitt, electrolytes disturbance, myasthenia gravis.... This is not meant to be an all-inclusive list EKG interpreted by me (3pts min.). @ -[Sinus rhythm rate of 79, OK interval 159, QRS duration 77, QTc [address] segment elevation. X-rays interpreted by me (1pt min.). @ -None done CT interpreted by me (1pt min.). @CT without contrast negative for intracranial hemorrhage or mass effect, CT angiography negative for acute occlusion or stenosis. U/S interpreted by me (1pt. min.). @ -None done What testing was considered but not performed or refused? (CT, X-rays, U/S, labs)? Why? @ -None What meds were considered but not given or refused? Why? @ -None Did you discuss the management of the patient with other professionals (professionals i.e. SUSAN Doss, [facility] [facility], lab, RT, psych nurse, social media director, pipe tester, teacher, giving officer, insurance case manager)? Give summary @ -No Was smoking cessation discussed for >3mins.? @ -No Was critical care preformed (if so, how long)? @ -No Were there social determinants of health that impacted care today? How? (Homelessness, low income, unemployed, alcoholism, drug addiction, tra nsportation, low edu. Level, literacy, decrease access to med. care, intermediate, rehab)? @ -No Was there de-escalation of care discussed even if they declined (Discuss DNR or withdrawal of care, Hospice)? DNR status @ -No What co-morbidities impacted this encounter? (DM, HTN, Smoking, COPD, CAD, Cancer, CVA, ARF, Chemo, Hep., AIDS, mental health diagnosis, sleep apnea, morbid obesity)? @ -None Was patient admitted / discharged? Hospital course, mention meds given and route, prescriptions, significant lab abnormalities, going to OR and other pertinent info. @ -[58-year-old female with a 30-minute episode of vision loss which occurred prior to arrival and was resolved at the time my evaluation. There was concern for TIA versus CVA. Laboratory testing as well as imaging was obtained. CT CT angiography were unremarkable, laboratory testing unremarkable. Patient vision remained at baseline and she was able to make an appointment with her post office manager for 2:00 today. She is discharged from the emergency department and instructed to go directly to the post office manager office. She should return to the emergency department with any worsening or changing symptoms. Undiagnosed new problem with uncertain prognosis? @ -No Drug Therapy requiring intensive monitoring for toxicity (Heparin, Nitro, Insulin, Cardizem)? @ -No Were any procedures done? @ -No Diagnosis/symptom? @ -Patient loss, resolved. TIA Acute, or Chronic, or Acute on Chronic? @ -Acute Uncomplicated (without systemic symptoms) or Complicated (systemic symptoms)? @ -Default Side effects of treatment? @ -No Exacerbation, Progression, or Severe Exacerbation? @ -No Poses a threat to life or bodily function? How? (Chest pain, [place], [place], pneumonia, PE, COPD, DKA, ARF, appy, cholecystitis, CVA, Diverticulitis, Homicidal, Suicidal, threat to staff... and all critical care pts) @ -[Yes, CVA, vision loss - Lab Data Result diagrams: 04/12/24 11:00 04/12/24 11:00 Lab Results 04/12/24 04/12/24 04/12/24 Range/Units 11:00 11:00 11:00 WBC 6.3 (3.8-10.6) k/uL RBC 4.26 (3.80-5.40) m/uL Hgb 13.8 (11.4-16.0) gm/dL Hct 40.6 (34.0-46.0) % MCV 95.5 (80.0-100.0) fL MCH 32.3 (25.0-35.0) pg MCHC 33.8 (31.0-37.0) g/dL RDW 12.5 (11.5-15.5) % Plt Count 273 (150-450) k/uL MPV 7.2 Neutrophils % 67 % Lymphocytes % 22 % Monocytes % 7 % Eosinophils % 3 % Basophils % 1 % Neutrophils # 4.2 (1.3-7.7) k/uL Lymphocytes # 1.4 (1.0-4.8) k/uL Monocytes # 0.4 (0-1.0) k/uL Eosinophils # 0.2 (0-0.7) k/uL Basophils # 0.0 (0-0.2) k/uL PT 10.3 (10.0-12.5) sec INR 0.9 (<1.2) APTT 23.8 (22.0-30.0) sec Sodium 130 L (137-145) mmol/L Potassium 4.6 (3.5-5.1) mmol/L Chloride 101 (98-107) mmol/L Carbon Dioxide 25 (22-30) mmol/L Anion Gap 4 mmol/L BUN 12 (7-17) mg/dL Creatinine 0.47 L (0.52-1.04) mg/dL Est GFR (CKD-EPI)AfAm >90 (>60 ml/min/1.73 sqM) Est GFR (CKD-EPI)NonAf >90 (>60 ml/min/1.73 sqM) Glucose 97 (74-99) mg/dL Calcium 9.6 (8.4-10.2) mg/dL Total Bilirubin 0.7 (0.2-1.3) mg/dL AST 34 (14-36) U/L ALT 26 (4-34) U/L Alkaline Phosphatase 57 (38-126) U/L Creatine Kinase 67 (30-135) U/L Troponin I (0.000-0.034) ng/mL Total Protein 6.3 (6.3-8.2) g/dL Albumin 4.3 (3.5-5.0) g/dL 04/12/24 Range/Units 11:00 WBC (3.8-10.6) k/uL RBC (3.80-5.40) m/uL Hgb (11.4-16.0) gm/dL Hct (34.0-46.0) % MCV (80.0-100.0) fL MCH (25.0-35.0) pg MCHC (31.0-37.0) g/dL RDW (11.5-15.5) % Plt Count (150-450) k/uL MPV Neutrophils % % Lymphocytes % % Monocytes % % Eosinophils % % Basophils % % Neutrophils # (1.3-7.7) k/uL Lymphocytes # (1.0-4.8) k/uL Monocytes # (0-1.0) k/uL Eosinophils # (0-0.7) k/uL Basophils # (0-0.2) k/uL PT (10.0-12.5) sec INR (<1.2) APTT (22.0-30.0) sec Sodium (137-145) mmol/L Potassium (3.5-5.1) mmol/L Chloride (98-107) mmol/L Carbon Dioxide (22-30) mmol/L Anion Gap mmol/L BUN (7-17) mg/dL Creatinine (0.52-1.04) mg/dL Est GFR (CKD-EPI)AfAm (>60 ml/min/1.73 sqM) Est GFR (CKD-EPI)NonAf (>60 ml/min/1.73 sqM) Glucose (74-99) mg/dL Calcium (8.4-10.2) mg/dL Total Bilirubin (0.2-1.3) mg/dL AST (14-36) U/L ALT (4-34) U/L Alkaline Phosphatase (38-126) U/L Creatine Kinase (30-135) U/L Troponin I <0.012 (0.000-0.034) ng/mL Total Protein (6.3-8.2) g/dL Albumin (3.5-5.0) g/dL Disposition Clinical Impression: Vision loss, TIA (transient ischemic attack) Disposition: HOME SELF-CARE Condition: Fair Instructions (If sedation given, give patient instructions): Transient Ischemic Attack (ED) Is patient prescribed a controlled substance at d/c from ED?: No Referrals: Jorge A Velasquez DO [Primary Care Provider] - 1-2 days Time of Disposition: 12:48
[2024-04-12 11:29] LABS: Basophils % (A) 1 %; Eosinophils # (A) 0.2 k/uL (0-0.7); Eosinophils % (A) 3 %; HCT 40.6 % (34.0-46.0); HGB 13.8 gm/dL (11.4-16.0); Lymphocytes # (A) 1.4 k/uL (1.0-4.8); Lymphocytes % (A) 22 %; MCH 32.3 pg (25.0-35.0); MCHC 33.8 g/dL (31.0-37.0); MCV 95.5 fL (80.0-100.0); Mean Platelet Volume 7.2; Monocytes # (A) 0.4 k/uL (0-1.0); Monocytes % (A) 7 %; Neutrophils # (A) 4.2 k/uL (1.3-7.7); Neutrophils % (A) 67 %; Platelet Count 273 k/uL (150-450); RBC 4.26 m/uL (3.80-5.40); RDW 12.5 % (11.5-15.5); WBC 6.3 k/uL (3.8-10.6)
[2024-04-12 11:51] LABS: ALT 26 U/L (4-34); AST 34 U/L (14-36); African American GFR (CKD) >90 (>60 ml/min/1.73 sqM); Albumin 4.3 g/dL (3.5-5.0); Alkaline Phosphatase 57 U/L (38-126); Anion Gap 4 mmol/L; Blood Urea Nitrogen 12 mg/dL (7-17); Calcium 9.6 mg/dL (8.4-10.2); Carbon Dioxide 25 mmol/L (22-30); Chloride 101 mmol/L (98-107); Creatine Kinase 67 U/L (30-135); Glucose 97 mg/dL (74-99); Non-African American GFR(CKD) >90 (>60 ml/min/1.73 sqM); Potassium 4.6 mmol/L (3.5-5.1); Sodium 130 mmol/L (137-145); Total Bilirubin 0.7 mg/dL (0.2-1.3); Total Protein 6.3 g/dL (6.3-8.2)
--- NOTE | 2024-04-12 11:58 | CT ---
EXAMINATION TYPE: CT brain wo con DATE OF EXAM: 04/12/2024 COMPARISON: None HISTORY: loss of vision left eye CT DLP: 1092.4 mGycm Automated exposure control for dose reduction was used. Findings: The ventricles, basal cisterns and sulci over the convexities are within normal limits and there is n o mass effect or shift of midline structures. No abnormal density is seen throughout the brain parenchyma and there is no acute intra or extra-axia l hemorrhage. The posterior fossa including the brainstem, fourth ventricle and cerebellar pontine angles appear no rmal. Intraorbital contents appear normal and symmetric. Visualized paranasal sinuses and mastoid air cells are well aerated. The calvarium is intact. IMPRESSION: No significant abnormality seen. There is no acute bleed or mass effect.
[2024-04-12 12:05] LABS: INR 0.9 (<1.2); Partial Thromboplastin Time 23.8 sec (22.0-30.0); Prothrombin Time 10.3 sec (10.0-12.5)
--- NOTE | 2024-04-12 12:09 | CT ---
EXAMINATION TYPE: CT angio head neck DATE OF EXAM: 04/12/2024 HISTORY: loss of vision left eye COMPARISON: None CT DLP: 506.4 mGycm. Automated Exposure Control for Dose Reduction was Utilized. TECHNIQUE: CTA scan of the head and neck is performed with IV Contrast, patient injected with 65 mL of Isovue 370, axial images are obtained, coronal and sagittal reformatted images are reviewed. 3D re constructed images are created on an independent workstation and reviewed. FINDINGS: The brachiocephalic origins are widely patent and no significant stenosis. There is no significant stenosis of the common or internal carotid arteries within the neck. There is no stenosis of the vertebral arteries. Intracranially, there is no stenosis, segmental occlusion, sizable aneurysm sac or vascular malformat ion. IMPRESSION:. No significant abnormality seen. NASCET criteria was used in interpretation of this exam?
[2024-04-12 13:13] VITALS: RESP 16
[2024-04-12 13:27] VITALS: BP 114/72; PULSE 72
== END 2024-04-12 13:27 | disposition home or self-care (01) ==
LOC: EC 10:14
CPT/HCPCS: 36415; 70450; 70496; 70498; 80053; 82550; 84484; 85025; 85610; 85730; 93005; 99284

== ENCOUNTER → 2024-09-03 | Outpatient (CLI) | payer MEDICAID ==
--- NOTE | 2024-09-03 10:14 | MM ---
Reason for Exam: Screening (asymptomatic). Last screening mammogram was performed 12 month(s) ago. Patient History: Menarche at age 11. Patient has no children. Postmenopausal. Currently using Estrogen, for 5 years. Currently using Progesterone, for 5 years. Hormonal Contraceptives, starting at age 11 for 40 years. 03/29/2014, Benign Core Biopsy on the left side. 03/29/2014, Benign Core Biopsy on the left side. Risk Values: Clara 5 year model risk: 2.4%. NCI Lifetime model risk: 11.9%. Prior Study Comparison: 07/27/2021 Bilateral Screening Mammogram, [facility]. 08/04/2022 Bilateral MG 3D screening mammo w/cad, [facility]. 08/09/2023 Bilateral MG 3D screening mammo w/cad, [facility]. Tissue Density: The breasts are heterogeneously dense, which may obscure small masses. Findings: Analyzed By CAD. Left breast surgical clips. Right breast: There is no suspicious group of microcalcifications or new suspicious mass. Benign-appearing calcifications left breast. Left breast: There is no suspicious group of microcalcifications or new suspicious mass. Benign-appearing calcifications left breast. Overall Assessment: Benign, BI-RAD 2 Management: Screening Mammogram of both breasts in [address] [facility] will attempt to contact patient to return for supplemental views and ultrasound if indicated. Patient should continue monthly self-breast exams. A clinical breast exam by your physician is recommended on an annual basis. This exam should not preclude additional follow-up of suspicious palpable abnormalities. Note on Clara scores and lifetime risk: 1. A Clara score greater than 3% is considered moderate risk. If this is the case, consider specialist referral to assess eligibility for a risk reducing agent. 2. If overall lifetime risk for the development of breast cancer is 20% or higher, the patient may qualify for future screening with alternating mammogram and breast MRI. [facility], , 09/03/2024 10:11 AM. Electronically signed and approved by: Andrew Hammer DO
== END | disposition home or self-care (01) ==
LOC: RADMAMWWP 08:37
PROVIDERS: ATTEND Obstetrics & Gynecology
DX: Z12.31 Encounter for screening mammogram for malignant neoplasm of breast (principal); Z78.0 Asymptomatic menopausal state; R92.333 Mammographic heterogeneous density, bilateral breasts; Z98.82 Breast implant status
CPT/HCPCS: 77063; 77067

== ENCOUNTER → 2024-09-03 | Outpatient (CLI) | payer MEDICAID ==
[2024-09-03 15:15] LABS: Basophils # (A) 0.06 X 10*3/uL (0.00-0.10); Basophils % (A) 1.1 %; Eosinophils # (A) 0.28 X 10*3/uL (0.04-0.35); Eosinophils % (A) 5.4 %; HCT 39.6 % (37.2-46.3); HGB 13.5 g/dL (12.0-15.0); Lymphocytes # (A) 1.51 X 10*3/uL (0.90-5.00); Lymphocytes % (A) 28.9 %; MCH 31.8 pg (27.0-32.0); MCHC 34.1 g/dL (32.0-37.0); MCV 93.2 FL (80.0-97.0); Monocytes # (A) 0.48 X 10*3/uL (0.20-1.00); Monocytes % (A) 9.2 %; NRBC Per 100 WBC 0 X 10*3/uL (0.00-0.01); Neutrophils # (A) 2.88 X 10*3/uL (1.80-7.70); Neutrophils % (A) 55.2 %; Platelet Count 272 X 10*3/uL (140-440); RBC 4.25 X 10*6/uL (4.10-5.20); RDW 12.1 % (11.5-14.5); WBC 5.22 X 10*3/uL (4.50-10.00)
[2024-09-03 15:50] LABS: ALT 19 U/L (8-44); AST 21 U/L (13-35); Albumin 4.3 g/dL (3.8-4.9); Albumin/Globulin Ratio 2.69 Ratio (1.60-3.17); Alkaline Phosphatase 63 U/L (41-126); Blood Urea Nitrogen 13.4 mg/dL (9.0-27.0); Calcium 9.6 mg/dL (8.7-10.3); Carbon Dioxide 24.3 mmol/L (21.6-31.8); Chloride 110 mmol/L (96-109); Chol/HDL Ratio 2.64 Ratio; Globulin 1.6 g/dL (1.6-3.3); Glucose 99 mg/dL (70-110); LDL Cholesterol,Calculated 71.7 mg/dL (0.0-131.0); Magnesium 1.9 mg/dL (1.5-2.4); Potassium 4.4 mmol/L (3.5-5.5); Sodium 146 mmol/L (135-145); Total Bilirubin 0.3 mg/dL (0.3-1.2); Total Protein 5.9 g/dL (6.2-8.2)
[2024-09-04 08:13] LABS: HLA B27 NEGATIVE
== END | disposition home or self-care (01) ==
LOC: LABWHC1 08:31
PROVIDERS: ATTEND Internal Medicine
DX: Z00.00 Encounter for general adult medical examination without abnormal findings (principal); E03.9 Hypothyroidism, unspecified; E55.9 Vitamin D deficiency, unspecified; M79.7 Fibromyalgia
CPT/HCPCS: 36415; 80053; 80061; 82306; 83735; 84439; 84443; 85025; 86812

== ENCOUNTER → 2024-10-10 | Outpatient (CLI) | payer MEDICAID ==
--- NOTE | 2024-10-10 17:05 | US ---
EXAMINATION TYPE: US kidneys/renal and bladder DATE OF EXAM: 10/10/2024 COMPARISON: CT CLINICAL INDICATION: Female, 58 years old with history of N39.0 UTI; hx UTI's. Hx RK lipoma. TECHNIQUE: Grayscale imaging of the bilateral kidneys and urinary bladder: FINDINGS: EXAM MEASUREMENTS: Right Kidney: 10.3 x 4.3 x 4.6 cm Left Kidney: 10.9 x 4.6 x 4.9 cm Right Kidney: Lateral mid echogenic lesion = 0.7 x 0.8 x 0.7 cm fractionally larger from prior where measured 5 mm and compatible with angiomyolipoma. Left Kidney: No hydronephrosis or masses seen Bladder: anechoic Bilateral Jets not seen There is no evidence for hydronephrosis at this point in time. No nephrolithiasis is seen. No ernestine s are identified. The urinary bladder is anechoic. IMPRESSION: 1. No evidence for obstructive uropathy. 2. Right renal cortical hypoechoic lesion compatible with angiomyolipoma seen on 04/22/2021 CT. [facility], , 10/10/2024 5:03 PM
== END | disposition home or self-care (01) ==
LOC: RADUSWWP 16:28
PROVIDERS: ATTEND Internal Medicine
DX: N39.0 Urinary tract infection, site not specified (principal); N28.89 Other specified disorders of kidney and ureter
CPT/HCPCS: 76770

== ENCOUNTER → 2025-02-18 | Outpatient (CLI) | payer MEDICAID ==
--- NOTE | 2025-02-18 08:56 | US ---
EXAMINATION TYPE: US carotid duplex BILAT DATE OF EXAM: 02/18/2025 COMPARISON: US 01/19/2024 CLINICAL INDICATION: Female, 59 years old with history of I65.23 OCCLUSION AND STENOSIS OF BILATERAL CAROTID; TIA right eye last year, no symptoms now. Additional History: .... TECHNIQUE: Grayscale, color Doppler and spectral Doppler evaluation of the bilateral carotid systems and vertebral arteries. Indirect Doppler criteria was utilized. FINDINGS: EXAM MEASUREMENTS: RIGHT: Peak Systolic Velocity (PSV) cm/sec ----- Right CCA: 76.2 ----- Right ICA: 82.0 ----- Right ECA: 65.9 ICA/CCA ratio: 1.1 RIGHT: End Diastole cm/sec ----- Right CCA: 20.9 ----- Right ICA: 22.3 ----- Right ECA: 10.3 LEFT: Peak Systolic Velocity (PSV) cm/sec ----- Left CCA: 50.2 ----- Left ICA: 82.0 ----- Left ECA: 54.5 ICA/CCA ratio: 1.6 LEFT: End Diastole cm/sec ----- Left CCA: 12.1 ----- Left ICA: 21.6 ----- Left ECA: 12.3 VERTEBRALS (direction of flow): Right Vertebral: Antegrade Left Vertebral: Antegrade Rhythm: Normal [employer] MEP NOTES: Mild homogeneous plaque with no stenosis. Left side with increased velocities due to vessel tortuosity. Color Doppler imaging shows patency with blood flow throughout the carotid artery. Spectral waveforms are within normal limits. IMPRESSION: Right: Less than 50% stenosis of the carotid bifurcation. Left: Less than 50% stenosis of the carotid bifurcation. Criteria for Assigning % of Stenosis / Diameter reduction (Estimation based on the indirect measurements of the internal carotid artery velocities (ICA PSV). 1. Normal (no stenosis)=ICA PSV < 180 cm/s: ratio < 2.0: ICA EDV<40 cm/s. 2. Less than 50% stenosis=ICA PSV < 180 cm/s: ratio < 2.0: ICA EDV<40 cm/s. 3. 50 to 69% stenosis=ICA PSV of 180 to 230 cm/s: ration 2.0 ? 4.0: ICA EDV 40-100 cm/s. PSV 125-180 cm/sec and ICA/CCA PSV Ratio ? 2.0 is also consistent with 50-69% stenosis 4. Greater than 70% stenosis to near occlusion= ICA PSV > 230 cm/s: ratio > 4.0: ICA EDV > 100 cm/s. 5. Near occlusion= ICA PSV velocities may be low or undetectable: variable ratio and ICA EDV. 6. Total occlusion=unable to detect flow. [facility], , 02/18/2025 8:54 AM
== END | disposition home or self-care (01) ==
LOC: RADUSWWP 08:00
PROVIDERS: ATTEND Internal Medicine
DX: I65.23 Occlusion and stenosis of bilateral carotid arteries (principal)
CPT/HCPCS: 93880

== ENCOUNTER → 2025-02-18 | Outpatient (CLI) | payer MEDICAID ==
[2025-02-18 15:28] LABS: Bilirubin,Urine Negative (Negative); Blood,Urine Large (Negative); Calcium Oxalate Crystals,Urine Few /hpf; Color,Urine Light Red; Glucose,Urine (UA) Negative (Negative); Ketones,Urine Trace (Negative); Leukocyte Esterase,Urine Large (Negative); Mucus,Urine Few /hpf; Nitrite,Urine Negative (Negative); PH, Urine 6.0 (5.0-8.0); Protein,Urine 1+ (Negative); RBC,Urine >182 /hpf (0-5); Specific Gravity,Urine 1.025 (1.001-1.035); Squamous Epithelial Cell,Urine 3 /hpf (0-4); Urobilinogen,Urine <2.0 mg/dL (<2.0); WBC,Urine >182 /hpf (0-5)
== END | disposition home or self-care (01) ==
LOC: LABPRL 08:54
PROVIDERS: ATTEND Internal Medicine
DX: N39.0 Urinary tract infection, site not specified (principal)
CPT/HCPCS: 81001; 87086